=== PATIENT | female | born 1985 | race Caucasian/White ===

== ENCOUNTER → 2020-09-02 07:46 | Outpatient (BNVA) | payer OTHER, SELFPAY | PROVIDERS: PCP Internal Medicine; Referring Provider Internal Medicine; Visit Provider Dietitian, Registered | DX: Z76.89 Persons encountering health services in other specified circumstances (principal) ==

== ENCOUNTER → 2020-09-14 10:49 | Outpatient (BNVA) | payer OTHER, SELFPAY | PROVIDERS: PCP Internal Medicine Medical Oncology; Referring Provider Internal Medicine Medical Oncology; Visit Provider Surgery | DX: E66.9 Obesity, unspecified (principal); Z68.39 Body mass index [BMI] 39.0-39.9, adult | CPT/HCPCS: 99212 ==

== ENCOUNTER → 2020-09-21 10:28 | Outpatient (BNVA) | payer OTHER, SELFPAY | PROVIDERS: PCP Internal Medicine Medical Oncology; Visit Provider Physician Assistant | DX: E66.9 Obesity, unspecified (principal); Z68.39 Body mass index [BMI] 39.0-39.9, adult | CPT/HCPCS: 99212 ==

== ENCOUNTER 2020-10-28 13:35 | Outpatient (REF) | payer OTHER, SELFPAY ==
[2020-10-28 14:52] LABS: Basophils Percent Auto 0.4 % (0-2); Eosinophils Percent Auto 0.3 % (0-4); Imm Gran Abs Auto 0.02 X10*3/uL (0.00-0.03); Imm Gran Pct Auto 0.3 % (0.0-0.4); Lymphocytes Absolute Auto 2.2 X10*3/uL (1.2-4.9); Lymphocytes Percent Auto 27.3 % (20-40); Mean Corpuscular HGB Conc 33.3 g/dl (31.0-35.0); Mean Corpuscular Hemoglobin 29.5 pg (27.0-33.0); Mean Corpuscular Volume 88.6 fL (80-98); Mean Platelet Volume 10.6 fL (9.4-12.3); Monocytes Absolute Auto 0.5 X10*3/uL (0.1-1.2); Monocytes Percent Auto 6.6 % (2-11); Neutrophils Absolute Auto 5.2 X10*3/uL (2.0-8.3); Neutrophils Percent Auto 65.1 % (45-73); Platelet Count 261 X10*3/uL (160-400); Red Cell Distribution Width 13.2 % (11.0-16.0); White Blood Count 7.9 X10*3/uL (4.8-10.8)
[2020-10-28 14:55] LABS: MANUAL DIFF FLAG NO
[2020-10-28 15:18] LABS: Albumin Level 3.8 g/dL (3.5-5.0); Anion Gap 10 (12-20); Blood Urea Nitrogen 15 mg/dL (9-16); Calcium 8.7 mg/dL (8.4-10.2); Carbon Dioxide 25 mmol/L (22-29); Chloride 108 mmol/L (96-108); Estimated Glomerular Filt Rate > 60; Glucose Random 84 mg/dL (60-115); Sodium 139 mmol/L (135-145)
[2020-10-28 15:25] LABS: Glucose Urine UA NEG (NEG); Leukocyte Esterase Urine 2+ (NEG); Nitrite Urine NEG (NEG); PH 5.5 (5.0-8.0); Specific Gravity - Urine >= 1.030 (1.005-1.025); Urine Blood 2+ (NEG); Urine Ketones 5 MG/DL (NEG); Urine Protein NEG (NEG-TRACE)
[2020-10-28 15:39] LABS: Appearance Urine HAZY; Color Urine YELLOW
[2020-10-28 17:01] LABS: Bacteria Urine 1+ /LPF; Squamous Epithelial Cell Urine 1+ /LPF
== END 2020-10-28 13:36 | disposition home or self-care (01) ==
LOC: HO.LAB 13:35
PROVIDERS: PCP Internal Medicine; Visit Provider Surgery
DX: Z01.818 Encounter for other preprocedural examination (principal); E66.9 Obesity, unspecified; Z68.37 Body mass index [BMI] 37.0-37.9, adult
CPT/HCPCS: 36415; 80048; 81001; 82040; 85025; 87086; 99212

== ENCOUNTER → 2020-10-29 10:52 | Outpatient (REF) | payer OTHER, SELFPAY ==
--- NOTE | 2020-10-29 13:26 | ECG_ITS ---
Test Reason : CP Blood Pressure : / mmHG Vent. Rate : 069 BPM Atrial Rate : 069 BPM P-R Int : 134 ms QRS Dur : 086 ms QT Int : 422 ms P-R-T Axes : 057 060 036 degrees QTc Int : 452 ms Normal sinus rhythm Normal ECG When compared with ECG of 15-JUL-2020 10:11, No significant change was found Referred By: Cesilia Forte Electronically Signed By:Tyler Gary
== END ==
LOC: HO.CARD 10:52
PROVIDERS: PCP Internal Medicine; Visit Provider Physician Assistant
DX: Z01.818 Encounter for other preprocedural examination (principal); R07.9 Chest pain, unspecified; R06.02 Shortness of breath
CPT/HCPCS: 93005

== ENCOUNTER 2020-11-10 06:26 | Inpatient (IN) | payer OTHER, SELFPAY ==
[2020-10-27 12:20] VITALS: BMI 39.1
--- NOTE | 2020-11-08 14:51 | MHC.SHP ---
Pre-Procedural Eval Section B Chief Complaint: Severe Morbid Obesity Allergies: Allergies Allergy/AdvReac Type Severity Reaction Status Date / Time banana Allergy Unknown Hives Uncoded 10/28/20 14:19 coffee deal Allergy Unknown Hives Uncoded 10/28/20 14:19 dust/dustmites Allergy Unknown Itching Uncoded 10/28/20 14:19 grass Allergy Unknown throat Uncoded 10/28/20 14:19 closure from cut grass shellfish Allergy Unknown throat Uncoded 10/28/20 14:19 closure from steamed shellfish Plan I have reviewed the history and physical and performed a pertinent physical examination on my patient. No changes have occurred unless specified.
--- NOTE | 2020-11-09 10:06 | HO.ANESPROP2 ---
Documented by User: Martha Madera 11/09/20 10:14 HPI - Anesthesia Eval Consult details Narrative: 35yo F for Gastrectomy Sleeve PMFSH Past Medical History Medical History Dysphagia Eczema Encephalomalacia on imaging study Insomnia OAB (overactive bladder) Obesity (BMI 30-39.9) Family History Family History Father HTN (hypertension) Mother HTN (hypertension) Brother No problems noted. Sister No problems noted. Sister No problems noted. Sister No problems noted. Daughter No problems noted. Daughter Brain tumor Seizure disorder Surgical History Surgical History History of bladder surgery History of esophagogastroduodenoscopy (EGD) History of tooth extraction Social History Social History Are you a primary healthcare technician to a significant other at home: No Do you presently have visiting nurse or other home services: No Alcohol intake: never Smoking Status: Never smoker Use of substances other than those prescribed or required for medical reasons: No Have you been hit, kicked, punched, or otherwise hurt by someone within the past year? If so, by whom?: No Advance Directives: No Advance Directives Information Provided: No Advance Directives on File: No Recently lost weight without trying: No Meds Allergies Allergy/AdvReac Type Severity Reaction Status Date / Time grass Allergy Severe throat Uncoded 11/10/20 06:43 closure from cut grass shellfish Allergy Severe throat Uncoded 11/10/20 06:42 closure from steamed shellfish banana Allergy Mild Hives Uncoded 11/10/20 06:43 coffee deal Allergy Mild Hives Uncoded 11/10/20 06:43 dust/dustmites Allergy Mild Itching Uncoded 11/10/20 06:44 Home Medications Medication Instructions Recorded Confirmed Type albuterol sulfate 90 mcg/actuation 1 puff INHALATION Q4-6H PRN 09/14/20 10/28/20 History aerosol inhaler clobetasol 0.05 % topical cream 1 appl TOPICAL BID PRN 09/14/20 10/28/20 History cyclobenzaprine 10 mg tablet 10 mg PO BEDTIME 09/14/20 10/28/20 History docusate sodium 100 mg capsule 100 mg PO BID 09/14/20 10/28/20 History fesoterodine 8 mg tablet,extended 8 mg PO DAILY 09/14/20 10/28/20 History release 24 hr fexofenadine 180 mg tablet 180 mg PO DAILY 09/14/20 10/28/20 History zolpidem 5 mg tablet 5 mg PO BEDTIME PRN 09/14/20 10/28/20 History etonogestrel-ethinyl estradiol 1 vag ring VAGINAL Q4W 10/27/20 10/28/20 History [NuvaRing] montelukast 1 tab PO BEDTIME 10/27/20 10/28/20 History multivitamin [One A Day] 1 tab PO DAILY 10/27/20 10/28/20 History omeprazole 1 cap PO DAILY 10/27/20 10/28/20 History potassium mg PO DAILY 10/27/20 10/28/20 History pxsffzt-wtiasrrsx-mgou 333 mg-133 tab PO DAILY tab 10/28/20 10/28/20 History mg-5 mg tablet Exam Exam Date and Time: November 09, 2020 1006 Height,Weight and Vital Signs: Height 5 ft 5.5 in Weight 108.227 kg Pertinent Lab Results Pertinent Lab Results: Laboratory Tests 10/28/20 14:40 Blood Type A Negative Antibody Screen NEGATIVE Laboratory Tests 10/28/20 10/28/20 14:40 14:40 WBC 7.9 Hgb 13.0 Hct 39.0 Plt Count 261 Sodium 139 Potassium 4.0 Chloride 108 Carbon Dioxide 25 BUN 15 Creatinine 0.72 Narrative Narrative: EKG 10/2020: NSR@69 Assessment and Plan Assessment Anesthesia Assessment: Chart Reviewed Documented by User: Jono Ochoa MD 11/10/20 07:35 [facility] Past Medical History Medical History Dysphagia Eczema Encephalomalacia on imaging study Insomnia OAB (overactive bladder) Obesity (BMI 30-39.9) Family History Family History Father HTN (hypertension) Mother HTN (hypertension) Brother No problems noted. Sister No problems noted. Sister No problems noted. Sister No problems noted. Daughter No problems noted. Daughter Brain tumor Seizure disorder Surgical History Surgical History History of bladder surgery History of esophagogastroduodenoscopy (EGD) History of tooth extraction Social History Social History Are you a primary healthcare technician to a significant other at home: No Do you presently have visiting nurse or other home services: No Alcohol intake: never Smoking Status: Never smoker Use of substances other than those prescribed or required for medical reasons: No Have you been hit, kicked, punched, or otherwise hurt by someone within the past year? If so, by whom?: No Advance Directives: No Advance Directives Information Provided: No Advance Directives on File: No Recently lost weight without trying: No Meds Allergies Allergy/AdvReac Type Severity Reaction Status Date / Time grass Allergy Severe throat Uncoded 11/10/20 06:43 closure from cut grass shellfish Allergy Severe throat Uncoded 11/10/20 06:42 closure from steamed shellfish banana Allergy Mild Hives Uncoded 11/10/20 06:43 coffee deal Allergy Mild Hives Uncoded 11/10/20 06:43 dust/dustmites Allergy Mild Itching Uncoded 11/10/20 06:44 Home Medications Medication Instructions Recorded Confirmed Type albuterol sulfate 90 mcg/actuation 1 puff INHALATION Q4-6H PRN 09/14/20 10/28/20 History aerosol inhaler clobetasol 0.05 % topical cream 1 appl TOPICAL BID PRN 09/14/20 10/28/20 History cyclobenzaprine 10 mg tablet 10 mg PO BEDTIME 09/14/20 10/28/20 History docusate sodium 100 mg capsule 100 mg PO BID 09/14/20 10/28/20 History fesoterodine 8 mg tablet,extended 8 mg PO DAILY 09/14/20 10/28/20 History release 24 hr fexofenadine 180 mg tablet 180 mg PO DAILY 09/14/20 10/28/20 History zolpidem 5 mg tablet 5 mg PO BEDTIME PRN 09/14/20 10/28/20 History etonogestrel-ethinyl estradiol 1 vag ring VAGINAL Q4W 10/27/20 10/28/20 History [NuvaRing] montelukast 1 tab PO BEDTIME 10/27/20 10/28/20 History multivitamin [One A Day] 1 tab PO DAILY 10/27/20 10/28/20 History omeprazole 1 cap PO DAILY 10/27/20 10/28/20 History potassium mg PO DAILY 10/27/20 10/28/20 History klfzalg-npvyulklf-whji 333 mg-133 tab PO DAILY tab 10/28/20 10/28/20 History mg-5 mg tablet Exam Airway Mallampati Class: II TM Dist: >3cm Neck ROM: Full Loose/Missing/Broken Teeth: No Heart: RRR Lungs: NL Other: AO Assessment and Plan Assessment Anesthesia Assessment: Anesthesia Plan Discussed and Chart Reviewed Final Anesthetic Review NPO: Yes ASA Class: II Final Preanesthetic Review: No Changes in Pt Med Stat, Meds/Allgs Chart Reviewed, Consent Obtained/Reviewed and Anes Risks/Benef Reviewed Patient Risk: Low Procedure Risk: Intermediate Anesthetic Plan Anesthetic Plan: GA Disposition: Standard PACU
[2020-11-10] VITALS (18 sets, daily range): BP systolic 104–138; BP diastolic 58–96; PULSE 65–99; RESP 12–20; TEMP 35.5–37.3; O2SAT 94–100
[2020-11-10 06:37] LABS: UPreg QC Valid YES; Urine Pregnancy NEGATIVE (NEGATIVE)
[2020-11-10 06:52] LABS: COVID-19 Test Negative (Negative)
[2020-11-10] MEDS: Lactated Ringers 1,000 ML 100 ML IVCONT (07:21)
[2020-11-10] MEDS: HYDROmorphone HCl 0.5 MG/0.5 ML SYRINGE 0.25 MG IVPUSH ×4 (09:34→19:56)
--- NOTE | 2020-11-10 09:44 | W.PM.OPN ---
Operative Note Operative Note Date of Service: 11/10/20 Narrative: Patient was brought into the operating room and placed on the operating room table in the supine position. General anesthesia was induced. Normal DVT prophylaxis was instituted and the patient received 2 grams of cefotetan preoperatively. The abdomen was then prepped and draped in the normal sterile fashion. A safety time-out was performed. A mixture of 1% lidocaine with epinephrine and ??% Marcaine plain was used to anesthetize the planned incision site in the left upper quadrant. A #11 scalpel was used to make a 5 mm left upper quadrant transverse incision through which a veress needle was placed. Three pops were heard going through the fascia. A saline drop test was used to confirm that the veress needle was intraabdominal. An optiview technique was then used to place a 5mm port in the left upper quadrant. A 5 mm 30 degree laproscope was then placed through this port and the abdominal cavity was surveyed and was normal. The patient was placed in reverse Trendelenburg positioning. A nichole liver retractor was then placed in the subxyphoid position and it was used to hold up the left lobe of the liver to the abdominal wall. This was secured to the bed using the liver retractor [place]. A ADONIS block was then performed for pain control on the right side of the abdomen. A 5 mm port was placed in the right upper quadrant near the falciform ligament. A 12 mm port was then placed in the mid epigastrium. One additional 5 mm port was placed in the left upper quadrant just to the left of the placement of the first port. I then performed a ADONIS block on the left side of the abdomen. I then removed the epigastric fat pad; there was a small anterior hiatal hernia noted. I reapproximated the left and right crura with a total of 2 stitches of 2-0 ethibond and a laparoscopic knot pusher. There was no residual hiatal hernia. I then opened up the angle of His. We then gained entry into the lesser sac about 4-5 cm from the pylorus. I had anesthesia place a 34 Ecu[place]orean orogastric tube into the distal antrum to use as a sizing tool for gastric pouch size. I divided the short gastric vessels up to the angle of His. We then started the creation of the gastric pouch by firing a 60 mm purple load endostapler up the stomach about 4-5 cm from the pylorus. We completed the creation of the gastric pouch using a total of 4 firings of a 60 mm purple load stapler. We had anesthesia remove the orogastric tube, then we clamped across the distal antrum using a fired 60 mm endostapler. We flattened the patient and then instilled normal saline surrounding the newly created staple line. I then performed an on-table endoscopy. I passed the gastroscopy into the posterior oropharynx and down the esophagus evaluating the esophageal mucosa which was normal. There was no evidence of hiatal hernia. I passed the gastroscope into the gastric pouch and insufflated the gastric pouch. There was healthy pink mucosa and no evidence of active bleeding. There was no evidence of leak on laparoscopy. I desufflated the gastric pouch and removed the endoscope. I removed the endostapler from the abdomen and suctioned the fluid from the left upper quadrant. I then removed the partial gastrectomy specimen through the epigastric 12 mm port site. I reapproximated the 12 mm port using a 0 maxon suture with a laparoscopic suture passer. I instilled local anesthetic into the fascial closure site and tied the suture down at a pressure of 8-10 mm of Hg. There was no residual fascial defect. We removed the liver retractor and the left upper quadrant 5 mm ports under direct visualization. There was no evidence of any active bleeding. I desufflated the abdomen through the last remaining port and removed the laparoscope and 5 mm port. We reapproximated all incisions with a 4-0 monocryl subcuticular stitch. We cleaned and dried the abdominal skin and applied dermabond skin glue. All count were correct at the end of the case. The patient was awake and in stable condition prior to extubation and transfer to the recovery room.
--- NOTE | 2020-11-10 09:45 | P.BOP_ITS ---
Brief Operative Note Date of Service: 11/10/20 Pre-op diagnosis: Obesity, BMI 37.8 Post-op diagnosis: other (Same and hiatal hernia) Procedure: Laparoscopic sleeve gastrectomy, hiatal hernia repair, Suraj block, and intraoperative endoscopy Implants: Covidien sally Surgeon: Cesilia Forte MD Anesthesia: [employer] Assembler: Bianca Wu Estimated blood loss (mL): 10 Pathology: other (Partial gastrectomy) Condition: stable Disposition: PACU
[2020-11-10] MEDS: Metoclopramide HCl 10 MG/2 ML VIAL IVPUSH ×3 (09:49→20:03)
[2020-11-10] MEDS: Famotidine/PF 20 MG/2 ML VIAL IVPUSH ×2 (09:51→20:28)
[2020-11-10] MEDS: Scopolamine 1.5 MG PATCH.TD.3 EAR-BEHIND (10:06)
[2020-11-10] MEDS: ondansetron HCL 4 MG/2 ML VIAL IVPUSH (17:07)
[2020-11-10] MEDS: Lactated Ringers 1,000 ML 150 ML IVCONT (17:48)
[2020-11-10] MEDS: Montelukast Sodium 10 MG TABLET PO (20:28)
[2020-11-10] MEDS: cefoTEtan disodium 2 GM in 0.9 % Sodium Chloride 50 ML IV (20:28)
[2020-11-10] MEDS: Zolpidem Tartrate 5 MG TABLET PO (20:28)
[2020-11-10] MEDS: 0.9 % Sodium Chloride Flush 3 ML SYRINGE IVFLUSH (20:29)
[2020-11-11] VITALS: BP 142/75; PULSE 79; RESP 16; TEMP 36.8; O2SAT 96
[2020-11-11] MEDS: Lactated Ringers 1,000 ML 150 ML IVCONT ×2 (00:29→06:24)
[2020-11-11] MEDS: ondansetron HCL 4 MG/2 ML VIAL IVPUSH ×2 (02:34→08:59)
[2020-11-11 03:54] VITALS: BP 149/90; PULSE 86; RESP 87; TEMP 36.8; O2SAT 98
[2020-11-11 04:31] LABS: Basophils Percent Auto 0.1 % (0-2); Hematocrit 34.8 % (37-47); Hemoglobin 11.6 g/dl (12.0-16.0); Imm Gran Abs Auto 0.03 X10*3/uL (0.00-0.03); Imm Gran Pct Auto 0.3 % (0.0-0.4); Lymphocytes Absolute Auto 1.8 X10*3/uL (1.2-4.9); Lymphocytes Percent Auto 15.5 % (20-40); Mean Corpuscular HGB Conc 33.3 g/dl (31.0-35.0); Mean Corpuscular Hemoglobin 30.1 pg (27.0-33.0); Mean Corpuscular Volume 90.4 fL (80-98); Mean Platelet Volume 10.7 fL (9.4-12.3); Monocytes Absolute Auto 0.8 X10*3/uL (0.1-1.2); Neutrophils Absolute Auto 8.7 X10*3/uL (2.0-8.3); Neutrophils Percent Auto 77.1 % (45-73); Platelet Count 229 X10*3/uL (160-400); Red Blood Count 3.85 X10*6/uL (4.20-5.50); Red Cell Distribution Width 13.2 % (11.0-16.0); White Blood Count 11.3 X10*3/uL (4.8-10.8)
[2020-11-11 04:32] LABS: MANUAL DIFF FLAG NO
[2020-11-11 05:01] LABS: Anion Gap 12 (12-20); Blood Urea Nitrogen 8 mg/dL (9-16); Calcium 8.3 mg/dL (8.4-10.2); Carbon Dioxide 25 mmol/L (22-29); Chloride 104 mmol/L (96-108); Creatinine Clr Calc Pharmacy 136.5; Estimated Glomerular Filt Rate > 60; Glucose Random 99 mg/dL (60-115); Potassium 4.3 mmol/l (3.3-5.1); Sodium 137 mmol/L (135-145)
[2020-11-11 08:00] VITALS: BP 152/96; PULSE 114; RESP 18; TEMP 36.4; O2SAT 98
--- NOTE | 2020-11-11 08:51 | PM.PNGS ---
Subjective Subjective Date of Service: 11/11/20 Interval history: Some incisional pain, no nausea. Been ambulating and using incentive spirometer. Had 2 oz of shake so far, and drank phase 2 yesterday. Physical Exam Vital Signs: Vital Signs: Last Vital Signs Temp 97.5 F 11/11/20 08:00 Pulse 114 H 11/11/20 08:00 Resp 18 11/11/20 08:00 BP 152/96 H 11/11/20 08:00 Pulse Ox 98 11/11/20 08:00 Body Mass Index 39.1 Const: General: cooperative, comfortable and no acute distress Orientation/consciousness: oriented to person, oriented to place and oriented to time GI: Inspection: Yes normal to inspection, No distended, Yes incision (surgical glue intact, no erythema/drainage/warmth/tenderness/induration) and Yes obesity Palpation (GI): Soft to palpation, nontender and no guarding Skin: General skin exam: scars (well-healed) Neuro: General: oriented to person, oriented to place and oriented to time Extrem: General: No calf tenderness Right lower extremity: no edema Left lower extremity: no edema Psych: Affect: normal affect Attitude: cooperative Progress Note: A&P Assessment and plan (1) S/P laparoscopic sleeve gastrectomy: Status: Acute (2) History of repair of hiatal hernia: Status: Acute Assessment and Plan: POD #1: Patient doing well and will be discharged home today. All instructions given in writing. Follow up as scheduled in 2 weeks. Fall Risk Details Current Medications: Current Medications Generic Name Dose Route Start Last Admin Trade Name Freq PRN Reason Stop Dose Admin Albuterol Sulfate 1 puff 11/10/20 13:04 Albuterol Sulfate 90 Mcg 8 Gm Inhaler INHALE Q4H PRN Wheezing Famotidine 20 mg 11/10/20 09:45 11/10/20 20:28 Famotidine/Pf 20 Mg/2 Ml Vial IVPUSH 20 mg BID PALLAVI Administration Hydromorphone HCl 0.25 mg 11/10/20 07:35 11/10/20 10:25 Hydromorphone Hcl 0.5 Mg/0.5 Ml Syringe IVPUSH 0.25 mg Q5M PRN Administration Pain, Severe (Pain Scale 7-10) Hydromorphone HCl 0.25 mg 11/10/20 09:40 11/10/20 19:56 Hydromorphone Hcl 0.5 Mg/0.5 Ml Syringe IVPUSH 0.25 mg Q4H PRN Administration Pain, Severe (Pain Scale 7-10) Lactated Ringer's 1,000 mls @ 150 mls/hr 11/10/20 09:45 11/11/20 06:24 Lr IVCONT 150 mls/hr .Q6H40M PALLAVI Administration Acetaminophen 1,000 mg in 100 mls @ 16.7 mls/hr 11/10/20 09:45 11/11/20 08:20 Ofirmev IV 16.7 mls/hr .Q6H PALLAVI Administration Metoclopramide HCl 10 mg 11/10/20 09:40 11/10/20 20:03 Metoclopramide Hcl 10 Mg/2 Ml Vial IVPUSH 10 mg Q6H PRN Administration Nausea Montelukast Sodium 10 mg 11/10/20 21:00 11/10/20 20:28 Montelukast Sodium 10 Mg Tablet PO 10 mg BEDTIME PALLAVI Administration Ondansetron HCl 4 mg 11/10/20 09:45 11/11/20 02:34 Ondansetron Hcl 4 Mg/2 Ml Vial IVPUSH 4 mg Q8H PALLAVI Administration Sodium Chloride 3 ml 11/10/20 16:00 11/11/20 08:20 0.9 % Sodium Chloride Flush 3 Ml Syringe IVFLUSH Not Given QSHIFT PALLAVI Zolpidem Tartrate 5 mg 11/10/20 13:04 11/10/20 20:28 Zolpidem Tartrate 5 Mg Tablet PO 5 mg BEDTIME PRN Administration Sleep Time Spent With Patient Time: Total time spent is greater than 50% in coordination of care (as documented) at patient's floor/unit and/or counseling patient: Time with patient: 15 - 24 minutes
--- NOTE | 2020-11-11 08:58 | PM.DS ---
DS: Providers Provider Date of admission: 11/10/20 06:26 Primary care physician: Seamus Stroud MD DS: Diagnosis Discharge Diagnosis (1) S/P laparoscopic sleeve gastrectomy: Status: Acute (2) History of repair of hiatal hernia: Status: Acute DS: Medications Discharge Medications Home Medications: Home Medications Medication Instructions Recorded Confirmed albuterol sulfate 90 mcg/actuation 1 puff INHALATION Q4-6H PRN 09/14/20 10/28/20 aerosol inhaler clobetasol 0.05 % topical cream 1 appl TOPICAL BID PRN 09/14/20 10/28/20 cyclobenzaprine 10 mg tablet 10 mg PO BEDTIME 09/14/20 10/28/20 docusate sodium 100 mg capsule 100 mg PO BID 09/14/20 10/28/20 fesoterodine 8 mg tablet,extended 8 mg PO DAILY 09/14/20 10/28/20 release 24 hr fexofenadine 180 mg tablet 180 mg PO DAILY 09/14/20 10/28/20 zolpidem 5 mg tablet 5 mg PO BEDTIME PRN 09/14/20 10/28/20 etonogestrel-ethinyl estradiol 1 vag ring VAGINAL Q4W 10/27/20 10/28/20 [NuvaRing] montelukast 1 tab PO BEDTIME 10/27/20 10/28/20 multivitamin [One A Day] 1 tab PO DAILY 10/27/20 10/28/20 omeprazole 1 cap PO DAILY 10/27/20 10/28/20 potassium mg PO DAILY 10/27/20 10/28/20 krfccow-dunkxuxhx-hlop 333 mg-133 tab PO DAILY tab 10/28/20 10/28/20 mg-5 mg tablet Previous Rx's Medication Instructions Recorded acetaminophen 500 mg tablet 1,000 mg PO Q6H PRN #30 tab 10/28/20 docusate sodium 100 mg capsule 100 mg PO BID #30 cap 10/28/20 famotidine 20 mg tablet 20 mg PO DAILY #30 tab 10/28/20 ondansetron HCl 4 mg tablet 4 mg PO Q6H PRN #30 tab 10/28/20 simethicone 80 mg chewable tablet 80 mg PO TID-QID PRN #30 tab 10/28/20 sulfamethoxazole 800 1 tab PO BID 5 Days #10 tab 10/29/20 mg-trimethoprim 160 mg tablet DS: Summary Time Spent with Patient Time attestation: Total time spent providing and/or coordinating discharge services: Physical Exam Vital Signs: Vital Signs: Last Vital Signs Temp 97.5 F 11/11/20 08:00 Pulse 114 H 11/11/20 08:00 Resp 18 11/11/20 08:00 BP 152/96 H 11/11/20 08:00 Pulse Ox 98 11/11/20 08:00 Body Mass Index 39.1 DS: Data Data Completed and Pending Pending studies at discharge: Pending at discharge 11/10/20 08:33 Surgical [PTH] Routine Labs on day of discharge: 10/28/20 14:40 Type and Screen Routine 11/10/20 06:12 Acetaminophen [Ofirmev] 1,000 mg in 100 ml IV PREOP cefoTEtan disod/Dextrose,Iso [Cefotan] 2 gm in 50 ml IV PREOP 11/10/20 06:15 COVID-19 ID NOW ([place]) Stat Ur Preg Test Stat Lactated Ringers [Lr] 1,000 ml IVCONT 100 mls/hr 11/10/20 07:07 Bupivacaine MPF 0.25 % [Sensorcaine-MPF 0.25% 10 ML] 10 ml .ROUTE .STK-MED ONE Lidocaine HCl 1 % MPF [Xylocaine 1 % MPF] 5 ml .ROUTE .STK-MED ONE 11/10/20 07:15 Acetaminophen [Ofirmev] 1,000 mg in 100 ml IV As directed cefoTEtan disodium [Cefotan] 2 gm .ROUTE .STK-MED ONE 11/10/20 07:18 Lidocaine HCl 2 % MPF [Xylocaine 2 % MPF] 5 ml .ROUTE .STK-MED ONE Midazolam HCl/PF [Versed] 2 mg .ROUTE .STK-MED ONE Rocuronium [place] [Zemuron] 100 mg IV .STK-MED ONE propofoL [Diprivan] 200 mg IVPUSH .STK-MED ONE 11/10/20 07:19 Ketamine HCl/NS 50 mg IVPUSH .STK-MED ONE fentaNYL citrate/PF [Sublimaze] 50 mcg .ROUTE .STK-MED ONE 11/10/20 07:35 oxyCODONE HCl Immed Release [Roxicodone] 5 mg PO ONCE PRN 11/10/20 07:37 Promethazine HCL [Phenergan] 12.5 mg 0.9 % Sodium Chloride [Ns] 50 ml IV ONCE 11/10/20 07:58 dexAMETHasone sod phosphate [Decadron] 4 mg .ROUTE .STK-MED ONE ondansetron HCL [Zofran] 4 mg .ROUTE .STK-MED ONE 11/10/20 08:03 HYDROmorphone HCl [Dilaudid] 2 mg .ROUTE .STK-MED ONE 11/10/20 08:18 Phenylephrine HCL 1,000 mcg IVPUSH .STK-MED ONE ePHEDrine sulfate 50 mg .ROUTE .STK-MED ONE 11/10/20 09:08 Sugammadex Sodium [Bridion] 200 mg IVPUSH .STK-MED ONE 11/10/20 09:25 Promethazine HCL [Phenergan] 25 mg IV .STK-MED ONE 11/10/20 09:32 HYDROmorphone HCl [Dilaudid] 0.5 mg .ROUTE .STK-MED ONE 11/10/20 09:34 Transfer Order Routine 11/10/20 10:02 Scopolamine [Transderm-Scop] 1.5 mg EAR-BEHIND ONCE ONE 11/10/20 10:05 Scopolamine [Transderm-Scop] 1.5 mg .ROUTE .STK-MED ONE 11/10/20 10:08 HYDROmorphone HCl [Dilaudid] 0.5 mg .ROUTE .STK-MED ONE 11/10/20 20:00 cefoTEtan disodium [Cefotan] 2 gm 0.9 % Sodium Chloride [Ns] 50 ml IV POSTOP 11/10/20 20:23 cefoTEtan disodium [Cefotan] 2 gm .ROUTE .STK-MED ONE 11/11/20 04:07 Basic Metabolic Panel DAILY@0500 Complete Blood Count Auto Diff DAILY@0500 Laboratory Last Values WBC 11.3 X10*3/uL (4.8-10.8) H 11/11/20 04:07 RBC 3.85 X10*6/uL (4.20-5.50) L 11/11/20 04:07 Hgb 11.6 g/dl (12.0-16.0) L 11/11/20 04:07 Hct 34.8 % (37-47) L 11/11/20 04:07 MCV 90.4 fL (80-98) 11/11/20 04:07 MCH 30.1 pg (27.0-33.0) 11/11/20 04:07 MCHC 33.3 g/dl (31.0-35.0) 11/11/20 04:07 RDW 13.2 % (11.0-16.0) 11/11/20 04:07 Plt Count 229 X10*3/uL (160-400) 11/11/20 04:07 MPV 10.7 fL (9.4-12.3) 11/11/20 04:07 Immature Gran % (Auto) 0.3 % (0.0-0.4) 11/11/20 04:07 Neut % (Auto) 77.1 % (45-73) H 11/11/20 04:07 Lymph % (Auto) 15.5 % (20-40) L 11/11/20 04:07 Stark % (Auto) 7.0 % (2-11) 11/11/20 04:07 Eos % (Auto) 0.0 % (0-4) 11/11/20 04:07 Baso % (Auto) 0.1 % (0-2) 11/11/20 04:07 Lymph # (Auto) 1.8 X10*3/uL (1.2-4.9) 11/11/20 04:07 Stark # (Auto) 0.8 X10*3/uL (0.1-1.2) 11/11/20 04:07 Eos # (Auto) 0.0 X10*3/uL (0.0-0.4) 11/11/20 04:07 Baso # (Auto) 0.0 X10*3/uL (0.0-0.2) 11/11/20 04:07 Abs Immat Gran (auto) 0.03 X10*3/uL (0.00-0.03) 11/11/20 04:07 Absolute Neuts (auto) 8.7 X10*3/uL (2.0-8.3) H 11/11/20 04:07 Absolute Nucleated RBC 0.000 X10*3/uL (0.0-0.012) 11/11/20 04:07 Nucleated RBC % (auto) 0.0 /100WBC (0.0-0.2) 11/11/20 04:07 Sodium 137 mmol/L (135-145) 11/11/20 04:07 Potassium 4.3 mmol/l (3.3-5.1) 11/11/20 04:07 Chloride 104 mmol/L (96-108) 11/11/20 04:07 Carbon Dioxide 25 mmol/L (22-29) 11/11/20 04:07 Anion Gap 12 (-) 11/11/20 04:07 BUN 8 mg/dL (9-16) L 11/11/20 04:07 Creatinine 0.69 mg/dL (0.5-1.4) 11/11/20 04:07 Estim Creat Clear Calc 136.5 11/11/20 04:07 Estimated GFR > 60 11/11/20 04:07 Random Glucose 99 mg/dL (60-115) 11/11/20 04:07 Calcium 8.3 mg/dL (8.4-10.2) L 11/11/20 04:07 Urine Test NEGATIVE (NEGATIVE) 11/10/20 06:15 COVID-19 (RUBÉN) Negative (Negative) 11/10/20 06:15 COVID-19 Clin Com See Note 11/10/20 06:15 Blood Type A Negative 10/28/20 14:40 Antibody Screen NEGATIVE 10/28/20 14:40 Discharge Plan Discharge Patient Disposition: Home, Self-Care Referrals: Seamus Stroud MD [Primary Care Provider] - Discharge Medications: Continued sulfamethoxazole-trimethoprim [Bactrim DS] 800-160 mg tablet 1 tab PO BID 5 Days Qty: 10 RF: 0 multivitamin [One A Day] Tablet 1 tab PO DAILY RF: 0 omeprazole 20 mg capsule,delayed release(DR/EC) 1 cap PO DAILY RF: 0 montelukast 10 mg tablet 1 tab PO BEDTIME RF: 0 potassium 20 mg Tablet,Chewable PO DAILY RF: 0 vyiebhf-qtaxvgigg-hyaj 333-133-5 mg tablet PO DAILY RF: 0 acetaminophen [Tylenol Extra Strength] 500 mg tablet 1,000 mg PO Q6H PRN (Reason: pain) Qty: 30 RF: 1 famotidine [Pepcid AC] 20 mg tablet 20 mg PO DAILY Qty: 30 RF: 1 simethicone [Gas Relief (simethicone)] 80 mg tablet,chewable 80 mg PO TID-QID PRN (Reason: abdominal distention) Qty: 30 RF: 1 ondansetron HCl [Zofran] 4 mg tablet 4 mg PO Q6H PRN (Reason: nausea and vomiting) Qty: 30 RF: 1 docusate sodium [Colace] 100 mg capsule 100 mg PO BID Qty: 30 RF: 1 fexofenadine 180 mg tablet 180 mg PO DAILY RF: 0 Toviaz 8 mg tablet extended release 24 hr 8 mg PO DAILY RF: 0 albuterol sulfate 90 mcg/actuation HFA aerosol inhaler 1 puff inhalation Q4-6H PRN (Reason: Wheezing) RF: 0 zolpidem 5 mg tablet 5 mg PO BEDTIME PRN (Reason: Sleep) RF: 0 cyclobenzaprine 10 mg tablet 10 mg PO BEDTIME RF: 0 clobetasol 0.05 % cream 1 appl topical BID PRN (Reason: Skin Irritation) RF: 0 Held etonogestrel-ethinyl estradiol [NuvaRing] 0.12-0.015 mg/24 hr Ring 1 vag ring VAGINAL Q4W RF: 0 Hold Instructions: Resume on 12/08/20. Discontinued docusate sodium 100 mg capsule 100 mg PO BID RF: 0 Diet: other Activity on Discharge: No heavy lifting Activity Restrictions/Additional Instructions: Discharge Instructions 1. Please call your doctor or come back to the emergency room should any new symptoms arise. 2. You will receive a courtesy call from [facility] 24-48 hours after discharge. 3. Activity: abstain from alcohol, practice limited stair climbing, no bending, no driving, no exercise, no illicit substances, no lifting, no sex, no tub bath, no work. 4. Diet: continue stage 3 protein shakes until your [address] Forte. 5. Dressing Change/Wound Care: Your incision is covered by surgical glue. If the area is tender, you may apply an ice pack for short intervals (no more than 20 minutes on, followed by at least 20 minutes off). Do not apply heat. Do not use creams, lotions, or topical antibiotics unless instructed to do so by your surgeon. These can cause infection or allergic reaction. 6. Call your doctor if: - Your temperature exceeds 101.5 F - You experience excessive pain or swelling - You have an unexpected reaction to medication - You have excessive bleeding - You experience continued vomiting/nausea - Your incision begins to separate - Your incision shows signs of infection such as increased redness, swelling, excessive pain, heat, or drainage (light blood or clear fluid is normal) 7. General instructions: - No lifting greater than 5 lbs for the next 4 weeks. - No driving within 24 hours of taking narcotic pain medications. - If you do not move your bowels in the next 2 days, please take milk of magnesia over the counter. Please follow the post op diet and do not advance your diet until you are seen in the office in about 2 weeks. - Please walk around your home every hour or two to prevent blood clots from forming in your legs. You do not need to wake from sleeping to walk. - Please sleep in a bed or couch to prevent kinking at the hips and knees. - Please take your incentive spirometer (your lung emergency room physician assistant) home with you and use it for the next few days to prevent pneumonias. - You may shower, no hot tubs, baths or swimming pools. - Please call the office with any questions or concerns such as increasing abdominal pain, fever, chills, shortness of breath, chest pain, leg pain or swelling, or redness or drainage from your incisions. - Please stay on stage 3 diet which includes sugar free clear liquids such as ice pops and jello and broth and crystal light. Avoid all carbonation. Please drink 3 protein shakes with at least 25-30 grams of protein daily or 3 of the Celebrate 4:1 shakes which can be purchased in our office. The Celebrate shakes have all of the bariatric vitamins you need if you consume these shakes. If you are drinking other protein shakes, you will need to purchase the Celebrate multivitamins and calcium that we provide in the office (they will provide all the vitamins you need). Please make sure you are consuming at least 40-60 ounces of water in addition to your 3 protein shakes daily. 8. Do not hesitate to contact the office with any questions at . Discharge Summary Date of Service: 11/11/20 Admitting Diagnosis: obesity Discharge Diagnosis: same Procedure Performed: LSG, HH repair, freddy block, intraoperative endoscopy Discharge Medications: 1. Simethicone 80mg tablet chewable (Si tablet every 6 hours orally for 7 days, #28, 1 RF) q4h prn gas 2. Acetaminophen 500 mg tablet (Si tablets as needed every 6 hours orally for 30 days, #240, 0 RF) 3. Ondansetron 4 mg tablet disintegrating (Si tablet every 6 hours orally for 7 days, #28, 1 RF) 4. Colace 100 mg capsule (Si capsule twice a day for 30 days, #60, 2 RF) 5. Pepcid 20 mg chewable tablet (Si tablet twice a day for 30 days, #60, 3 RF) Discharge Instructions: The patient should continue on the stage III bariatric diet, which includes 3 protein shakes of at least 20-30g of protein on a daily basis. The patient was encouraged to avoid drinking liquids with her protein shakes. They should wait 30-45 minutes in between her meals and drinking water. She should drink at least 40-60 ounces of water on a daily basis. They should ambulate while at home to avoid any blood clots in her lower extremities. They should call with any questions or concerns such as increase in abdominal pain, persistent nausea, vomiting, redness and drainage from her incisions, fever, chills, shortness of breast, or chest pain beyond what is normal for her. The patient should avoid all heavy lifting greater than 5 pounds for the next 4 weeks. The patient is already scheduled to follow up with me in 2 weeks time, but should call the office with any questions prior to that follow up appointment. The patient should not advance their diet until they are seen in the office for the 2 week appointment. Hospital Course: The patient was admitted after undergoing SURGERY. They were started on stage II (1 oz of fluid every 15 minutes) on POD #0. The next morning they were evaluated and started on stage III diet (protein shakes). All labs were within normal limits. On post-operative day #1 she was feeling better, nausea and epigastric pain improved and they were tolerating stage III bariatric diet well. The patient was discharged home. Discharge Disposition: Home. Visit Report Forms: Patient Portal Discharge page Care Plan Goals: weight loss Health Concerns: obesity Plan of Treatment: s/p sleeve gastrectomy
--- NOTE | 2020-11-11 08:58 | HO.POSTANES ---
Post Anesthesia Evaluation Post Anesthesia Evaluation Vital Signs: Vital Signs Temp Pulse Resp BP Pulse Ox 11/11/20 08:00 97.5 F 114 H 18 152/96 H 98 11/11/20 03:54 98.3 F 86 87 H 149/90 H 98 11/11/20 00:00 98.2 F 79 16 142/75 H 96 Anesthesia: General Endotracheal-GETA Mental Status: Awake Pain Control: Satisfactory Nausea/Vomiting: None Hydration: Adequate Anesthesia-Related Issues: No Anes. Related Issues
[2020-11-11] MEDS: Famotidine/PF 20 MG/2 ML VIAL IVPUSH (08:59)
--- NOTE | 2020-11-11 10:00 | MHC.CM.PN ---
EMR BRIANWED, PT WILL DISCHARGE HOME SELF-CARE, DAUGHTER TO TRANSPORT, PT INDEPENDANT AT HOME, DENIES USING ANY DME AND HAS NO HOME SERVICES, PT DENIES ANY NEED FOR ASSISTANCE OR SERVICES. PT OFFERED HELP WITH HCP AND CM WILL COMPLETE WITH PT.
--- NOTE | 2020-11-11 10:13 | MHC.CM.PN ---
PT DISCHARGED HOME SELF-CARE, DAUGHTER FOR TRANSPORTATION, PT LEFT BEFORE COMPLETING HCP WITH CM.
== END 2020-11-11 10:15 | disposition home or self-care (01) | DRG 403 ==
LOC: HO.SSSA 11:53 → HO.S3 12:05
PROVIDERS: Nurse Practitioner; Physician Assistant; Admitting Provider Surgery; PCP Internal Medicine; Visit Provider Surgery
PROC: 0DB64Z3 Excision of Stomach, Percutaneous Endoscopic Approach, Vertical (ICD-10-PCS; CPT 43845; principal; 2020-11-10 07:30)
DX: E66.01 Morbid (severe) obesity due to excess calories (principal); K44.9 Diaphragmatic hernia without obstruction or gangrene; Z20.828 Contact with and (suspected) exposure to other viral communicable diseases; Z68.39 Body mass index [BMI] 39.0-39.9, adult; Z79.3 Long term (current) use of hormonal contraceptives; Z79.899 Other long term (current) drug therapy
CPT/HCPCS: 36415; 80048; 81025; 85025; 86850; 86900; 86901; 87635; 88307; 88342; C1776; J0131; J1100; J1170; J2250; J2370; J2405; J2765; J3010

== ENCOUNTER → 2020-11-23 15:34 | Outpatient (BNVA) | payer OTHER, SELFPAY | PROVIDERS: PCP Internal Medicine; Visit Provider Surgery | DX: E66.9 Obesity, unspecified (principal); K91.2 Postsurgical malabsorption, not elsewhere classified; Z98.890 Other specified postprocedural states; Z87.19 Personal history of other diseases of the digestive system; Z90.3 Acquired absence of stomach [part of]; Z98.84 Bariatric surgery status | CPT/HCPCS: 99212 ==

== ENCOUNTER → 2020-12-07 15:50 | Outpatient (BNVA) | payer OTHER, SELFPAY | PROVIDERS: PCP Internal Medicine; Visit Provider Physician Assistant | DX: E66.9 Obesity, unspecified (principal); K91.2 Postsurgical malabsorption, not elsewhere classified; Z98.84 Bariatric surgery status; Z90.3 Acquired absence of stomach [part of]; Z98.890 Other specified postprocedural states; Z87.19 Personal history of other diseases of the digestive system | CPT/HCPCS: 99212 ==

== ENCOUNTER → 2020-12-17 09:55 | Outpatient (BNVA) | payer OTHER, SELFPAY | PROVIDERS: PCP Internal Medicine; Visit Provider Physician Assistant | DX: E66.9 Obesity, unspecified (principal); Z68.33 Body mass index [BMI] 33.0-33.9, adult; K91.2 Postsurgical malabsorption, not elsewhere classified; K59.00 Constipation, unspecified; Z98.84 Bariatric surgery status | CPT/HCPCS: 99212 ==

== ENCOUNTER 2020-12-30 11:47 | Outpatient (REF) | payer OTHER, SELFPAY ==
--- NOTE | ~2020-12-30 | XR_ITS ---
EXAMINATION: XR ABDOMEN KUB CLINICAL INDICATION: K59.00 - Constipation, unspecified COMPARISON: None TECHNIQUE: AP x2 views of the abdomen. FINDINGS: There is scattered gas in the bowel of normal caliber. Some minor stool present right colon. There is no constipation. No excessive amount of stool. No bowel gas dilatation or abnormal collections of gas. Visualized lung bases are clear. There are fine chain sally overlying mid left epigastrium. There is a stimulator and lead overlying right mid sacral foramen. Bony structures are unremarkable. XR/XR KUB IMPRESSION: Unremarkable examination.
== END 2020-12-30 11:48 | disposition home or self-care (01) ==
LOC: HO.XRAY 11:47
PROVIDERS: PCP Internal Medicine; Visit Provider Physician Assistant
DX: K59.00 Constipation, unspecified (principal); E66.9 Obesity, unspecified; Z68.33 Body mass index [BMI] 33.0-33.9, adult
CPT/HCPCS: 74018; 99212

== ENCOUNTER → 2021-01-11 16:00 | Outpatient (BNVA) | payer OTHER, SELFPAY | PROVIDERS: PCP Internal Medicine; Visit Provider Dietitian, Registered ==

== ENCOUNTER → 2021-02-08 15:25 | Outpatient (BNVA) | payer OTHER, SELFPAY | PROVIDERS: PCP Internal Medicine; Visit Provider Surgery | DX: E66.9 Obesity, unspecified (principal); Z68.30 Body mass index [BMI] 30.0-30.9, adult | CPT/HCPCS: 99212 ==

== ENCOUNTER → 2021-03-08 15:46 | Outpatient (BNVA) | payer OTHER, SELFPAY | PROVIDERS: PCP Internal Medicine; Visit Provider Physician Assistant | DX: E66.3 Overweight (principal); Z68.29 Body mass index [BMI] 29.0-29.9, adult; K21.9 Gastro-esophageal reflux disease without esophagitis; Z90.3 Acquired absence of stomach [part of]; Z98.84 Bariatric surgery status; Z71.3 Dietary counseling and surveillance; Z79.899 Other long term (current) drug therapy | CPT/HCPCS: 99212 ==

== ENCOUNTER → 2021-04-05 10:20 | Outpatient (BNVA) | payer OTHER, SELFPAY | PROVIDERS: PCP Internal Medicine; Referring Provider Internal Medicine; Visit Provider Dietitian, Registered | DX: E66.3 Overweight (principal); Z68.28 Body mass index [BMI] 28.0-28.9, adult | CPT/HCPCS: 97803 ==

== ENCOUNTER → 2021-05-10 15:43 | Outpatient (BNVA) | payer OTHER, SELFPAY | PROVIDERS: PCP Internal Medicine; Referring Provider Internal Medicine; Visit Provider Surgery | DX: E66.3 Overweight (principal); Z68.28 Body mass index [BMI] 28.0-28.9, adult | CPT/HCPCS: 99212 ==

== ENCOUNTER 2021-05-12 09:18 | Outpatient (REF) | payer OTHER, SELFPAY ==
[2021-05-12 10:08] LABS: MANUAL DIFF FLAG NO
[2021-05-12 10:18] LABS: Basophils Percent Auto 0.5 % (0-2); Eosinophils Percent Auto 0.7 % (0-4); Hemoglobin 13.2 g/dl (12.0-16.0); Imm Gran Abs Auto 0.01 X10*3/uL (0.00-0.03); Imm Gran Pct Auto 0.2 % (0.0-0.4); Lymphocytes Absolute Auto 1.9 X10*3/uL (1.2-4.9); Lymphocytes Percent Auto 33.2 % (20-40); Mean Corpuscular Hemoglobin 29.8 pg (27.0-33.0); Mean Corpuscular Volume 90.3 fL (80-98); Mean Platelet Volume 10.7 fL (9.4-12.3); Monocytes Absolute Auto 0.3 X10*3/uL (0.1-1.2); Monocytes Percent Auto 5.9 % (2-11); Neutrophils Absolute Auto 3.4 X10*3/uL (2.0-8.3); Neutrophils Percent Auto 59.5 % (45-73); Platelet Count 248 X10*3/uL (160-400); Red Blood Count 4.43 X10*6/uL (4.20-5.50); White Blood Count 5.6 X10*3/uL (4.8-10.8)
[2021-05-12 10:38] LABS: Alanine Aminotransferase 18 U/L (0-31); Albumin Level 3.8 g/dL (3.5-5.0); Alkaline Phosphatase 97 U/L (39-117); Anion Gap 11 (12-20); Aspartate Amino Transferase 22 U/L (5-31); Bilirubin Total 0.5 mg/dL (0.0-1.0); Blood Urea Nitrogen 12 mg/dL (9-16); C Reactive Protein 0.85 mg/dL (< or = 0.50); Calcium 9.2 mg/dL (8.4-10.2); Carbon Dioxide 27 mmol/L (22-29); Chloride 107 mmol/L (96-108); Cholesterol 169 mg/dL; Estimated Glomerular Filt Rate > 60; Glucose Fasting 79 mg/dL (60-99); HDL Cholesterol 68 mg/dL; Iron 100 mcg/dL (30-160); LDL Cholesterol Calculated 84 mg/dl; Percent Iron Saturation 29 % (15-50); Potassium 4.6 mmol/L (3.3-5.1); Sodium 140 mmol/L (135-145); Total Iron Binding Capacity 348 mcg/dL (228-428); Total Protein 6.8 g/dL (6.5-8.0); Triglycerides 89 mg/dL; Unsaturated Iron Binding 248 ug/dL
[2021-05-12 11:00] LABS: Thyroid Stimulating Hormone 1.45 uIU/mL (0.32-4.0); Vitamin D 25-OH Total 66.6 ng/mL (>30)
[2021-05-12 11:03] LABS: Estimated Average Glucose 97 mg/dL
[2021-05-12 11:20] LABS: Vitamin B12 702 pg/mL (200-900)
[2021-05-17 15:37] LABS: Vitamin B1 18 nmol/L (8-30)
[2021-05-18 03:16] LABS: Zinc 66 mcg/dL (60-130)
[2021-05-18 19:51] LABS: Vitamin A 51 mcg/dL (38-98)
== END 2021-05-12 09:19 | disposition home or self-care (01) ==
LOC: HO.LAB 09:18
PROVIDERS: PCP Internal Medicine; Visit Provider Surgery
DX: Z01.818 Encounter for other preprocedural examination (principal); K91.2 Postsurgical malabsorption, not elsewhere classified; Z90.3 Acquired absence of stomach [part of]
CPT/HCPCS: 36415; 80053; 80061; 82306; 82607; 83036; 83540; 84425; 84443; 84590; 84630; 85025; 86140

== ENCOUNTER → 2021-06-07 08:14 | Outpatient (BNVA) | payer OTHER, SELFPAY | PROVIDERS: PCP Internal Medicine; Visit Provider Dietitian, Registered | DX: E66.3 Overweight (principal) | CPT/HCPCS: 97803 ==

== ENCOUNTER → 2021-08-17 15:35 | Outpatient (BNVA) | payer OTHER, SELFPAY | PROVIDERS: PCP Internal Medicine; Referring Provider Internal Medicine; Visit Provider Surgery | DX: E66.3 Overweight (principal); Z68.29 Body mass index [BMI] 29.0-29.9, adult | CPT/HCPCS: 99212 ==

== ENCOUNTER → 2021-09-13 08:02 | Outpatient (BNVA) | payer OTHER, SELFPAY | PROVIDERS: PCP Internal Medicine; Visit Provider Dietitian, Registered | DX: E66.3 Overweight (principal) | CPT/HCPCS: 97803 ==

== ENCOUNTER 2021-10-24 17:11 | Emergency (ER) | payer OTHER, SELFPAY ==
--- NOTE | ~2021-10-24 | XR_ITS ---
EXAMINATION: XR CHEST CLINICAL INFORMATION: Cough. COMPARISON: Chest radiograph dated 07/15/2020. TECHNIQUE: Frontal view of the chest was obtained. FINDINGS: The lungs are clear. The cardiomediastinal silhouette is normal in size. There is no pleural effusion or pneumothorax. No acute osseous abnormality. XR/XR chest 1V IMPRESSION: No acute cardiopulmonary findings.
[2021-10-24 18:57] VITALS: BP 146/91; PULSE 92; RESP 18; TEMP 36.8; O2SAT 100; BMI 26.6
== END 2021-10-24 20:46 | disposition left against medical advice (07) ==
LOC: HO.ED 20:37
PROVIDERS: Emergency Provider Emergency Medicine; PCP Internal Medicine
DX: U07.1 COVID-19 (principal)
CPT/HCPCS: 71045; 99282; 99283

== ENCOUNTER → 2021-11-10 10:52 | Outpatient (BNVA) | payer OTHER, SELFPAY | PROVIDERS: PCP Internal Medicine; Referring Provider Internal Medicine; Visit Provider Physician Assistant Surgical ==

== ENCOUNTER 2021-11-10 11:47 | Outpatient (REF) | payer OTHER, SELFPAY ==
[2021-11-10 12:13] LABS: MANUAL DIFF FLAG NO
[2021-11-10 12:20] LABS: Basophils Percent Auto 0.3 % (0-2); Eosinophils Percent Auto 0.1 % (0-4); Hematocrit 37.2 % (37.0-47.0); Hemoglobin 12.4 g/dl (12.0-16.0); Imm Gran Abs Auto 0.02 X10*3/uL (0.00-0.03); Imm Gran Pct Auto 0.3 % (0.0-0.4); Lymphocytes Absolute Auto 2.1 X10*3/uL (1.2-4.9); Lymphocytes Percent Auto 29.4 % (20-40); Mean Corpuscular HGB Conc 33.3 g/dl (31.0-35.0); Mean Corpuscular Hemoglobin 29.8 pg (27.0-33.0); Mean Corpuscular Volume 89.4 fL (80.0-98.0); Mean Platelet Volume 10.3 fL (9.4-12.3); Monocytes Absolute Auto 0.4 X10*3/uL (0.1-1.2); Monocytes Percent Auto 5.8 % (2-11); Neutrophils Absolute Auto 4.6 x10*3/uL (2.0-8.3); Neutrophils Percent Auto 64.1 % (45-73); Platelet Count 267 X10*3/uL (160-400); Red Blood Count 4.16 X10*6/uL (4.20-5.50); Red Cell Distribution Width 13.2 % (11.0-16.0); White Blood Count 7.2 X10*3/uL (4.8-10.8)
[2021-11-10 12:39] LABS: Estimated Average Glucose 97 mg/dL
[2021-11-10 12:48] LABS: Anion Gap 10 (12-20); Blood Urea Nitrogen 16 mg/dL (9-16); C Reactive Protein 0.69 mg/dL (< or = 0.50); Calcium 9.5 mg/dL (8.4-10.2); Carbon Dioxide 26 mmol/L (22-29); Chloride 108 mmol/L (96-108); Cholesterol 168 mg/dL; Estimated Glomerular Filt Rate > 60; Glucose Random 85 mg/dL (60-115); HDL Cholesterol 80 mg/dL; Iron 145 mcg/dL (30-160); LDL Cholesterol Calculated 73 mg/dl; Percent Iron Saturation 38 % (15-50); Potassium 4.2 mmol/L (3.3-5.1); Sodium 140 mmol/L (135-145); Total Iron Binding Capacity 384 mcg/dL (228-428); Triglycerides 76 mg/dL; Unsaturated Iron Binding 239 ug/dL
[2021-11-10 13:10] LABS: TSH reflex Free T4 1.85 uIU/mL (0.32-4.0); Vitamin D 25-OH Total 63.5 ng/mL (>30)
[2021-11-10 13:13] LABS: Ferritin 106 ng/mL (10-122)
[2021-11-10 13:17] LABS: Folate > 20.0 ng/mL (> or = 4.0); Vitamin B12 810 pg/mL (200-900)
[2021-11-14 13:32] LABS: Calcium (PTHI) 9.4 mg/dL (8.6-10.2); PTHI 40 pg/mL (14-64)
[2021-11-15 01:27] LABS: Zinc 77 mcg/dL (60-130)
[2021-11-15 19:17] LABS: Vitamin A 78 mcg/dL (38-98)
[2021-11-17 15:42] LABS: Vitamin B1 38 nmol/L (8-30)
== END 2021-11-10 11:48 | disposition home or self-care (01) ==
LOC: HO.LAB 11:47
PROVIDERS: PCP Internal Medicine; Visit Provider Physician Assistant Surgical
DX: E66.3 Overweight (principal); K91.2 Postsurgical malabsorption, not elsewhere classified; Z90.3 Acquired absence of stomach [part of]; Z98.890 Other specified postprocedural states; Z87.19 Personal history of other diseases of the digestive system
CPT/HCPCS: 36415; 80048; 80061; 82306; 82607; 82728; 82746; 83036; 83540; 83970; 84425; 84443; 84590; 84630; 85025; 86140; 99212

== ENCOUNTER 2021-11-24 09:41 | Outpatient (REF) | payer OTHER, SELFPAY ==
--- NOTE | ~2021-11-24 | MR_ITS ---
EXAMINATION: MR BRAIN WITHOUT AND WITH CONTRAST CLINICAL INFORMATION: Follow-up right pontine lesion. COMPARISON: MRI scan of the brain 07/12/2020. TECHNIQUE: Multiplanar, multisequence MRI of the brain was obtained before and after the intravenous administration of 7.5 mL Gadavist. FINDINGS: No diffusion abnormalities are identified to suggest an acute or subacute infarct. No mass effect or midline shift is seen. The ventricles and sulci are normal in size. The study redemonstrates an area of hyperintense T2 signal with corresponding T1 and FLAIR signal in the anteromedial right frontal lobe inferiorly with surrounding mild gliotic changes. It measures 2.6 x 1.4 x 1.4 cm, similar compared to prior imaging. There is no abnormal enhancement in or around this area. On the current study, the area of hyperintense T2 and FLAIR signal previously demonstrated in the right aspect of the vanessa is not as prominent compared to prior imaging. However, it does demonstrate mild hazy enhancement. Brain parenchymal signal elsewhere appears normal. On postcontrast imaging, there is no other abnormal parenchymal or leptomeningeal enhancement. There is no evidence of acute hemorrhage. The cerebellar tonsils have normal contour and position, and the craniocervical junction appears normal. Marrow signal and midline structures are normal. The major intracranial flow-voids at the level of the [place] are preserved. The dural venous sinus flow-voids are maintained. The mastoid air cells and paranasal sinuses are well-aerated. MR/MR head/brain wo/w con IMPRESSION: 1. There are no acute bleeds or infarcts. No masses are demonstrated. 2. The study demonstrates an area of encephalomalacia with minimal peripheral gliotic change in the right frontal region, which appears stable. 3. The previously demonstrated area of hyperintense signal on T2 and FLAIR in the vanessa is not as prominent on the current study, but does demonstrate minimal enhancement. This area does not demonstrate restricted diffusion, and is unlikely to be due to active demyelination. It may be consistent with a small vascular malformation such as a capillary telangiectasia. Elsewhere brain parenchymal signal appears normal.
== END 2021-11-24 09:42 | disposition home or self-care (01) ==
LOC: HO.MRI 09:41
PROVIDERS: Visit Provider Psychiatry & Neurology Neurology
DX: G93.9 Disorder of brain, unspecified (principal)
CPT/HCPCS: 70553; A9585

== ENCOUNTER 2021-12-08 10:16 | Outpatient (REF) | payer OTHER, SELFPAY ==
--- NOTE | ~2021-12-08 | FL_ITS ---
EXAMINATION: XR FLUOROSCOPY UPPER GI WITH AIR CLINICAL INFORMATION: Heartburn COMPARISON: None TECHNIQUE: Air-contrast upper GI examination. FINDINGS: There is normal apposition of vocal cords while saying E. There is normal elevation of the soft palate while saying candy. Patient swallowed thin and thick barium without difficulty. No nasopharyngeal reflux or tracheal aspiration. There is normal esophageal motility. No persistent stricture or ulceration is noted. No hiatal hernia. There was noted to be some spontaneous gastroesophageal reflux to the level of the aysha which cleared rapidly. Patient is status post previous gastric surgery with the appearance of a possible gastric sleeve. There is a region of narrowing but which is distensible within the mid gastric body. No ulceration or suspicious mass is appreciated. There is no delay in gastric emptying. The duodenal bulb and sweep appear unremarkable. FLUOROSCOPY TIME: 1.9 minutes DOSE AREA PRODUCT: 10.430 Gy-cm2 (richey-centimeter squared) FL/FL upper GI w air IMPRESSION: Mild gastroesophageal reflux which clears rapidly. Status post previous gastric surgery.
== END 2021-12-08 10:17 | disposition home or self-care (01) ==
LOC: HO.XRAY 10:16
PROVIDERS: Visit Provider Physician Assistant Surgical
DX: K21.9 Gastro-esophageal reflux disease without esophagitis (principal); Z98.890 Other specified postprocedural states; Z87.19 Personal history of other diseases of the digestive system
CPT/HCPCS: 74246

== ENCOUNTER → 2022-05-10 15:43 | Outpatient (BNVA) | payer OTHER, SELFPAY | PROVIDERS: PCP Internal Medicine; Visit Provider Physician Assistant Surgical | DX: E66.3 Overweight (principal); Z68.26 Body mass index [BMI] 26.0-26.9, adult; L98.7 Excessive and redundant skin and subcutaneous tissue; Z87.19 Personal history of other diseases of the digestive system; Z98.84 Bariatric surgery status | CPT/HCPCS: 99212 ==

== ENCOUNTER 2022-06-08 09:48 | Outpatient (REF) | payer OTHER, SELFPAY ==
[2022-06-08 10:10] LABS: MANUAL DIFF FLAG NO
[2022-06-08 10:46] LABS: Basophils Percent Auto 0.4 % (0-2); Eosinophils Percent Auto 0.4 % (0-4); Hematocrit 41.4 % (37.0-47.0); Hemoglobin 13.9 g/dl (12.0-16.0); Imm Gran Abs Auto 0.01 X10*3/uL (0.00-0.03); Imm Gran Pct Auto 0.2 % (0.0-0.4); Lymphocytes Absolute Auto 1.7 X10*3/uL (1.2-4.9); Lymphocytes Percent Auto 33.4 % (20-40); Mean Corpuscular HGB Conc 33.6 g/dl (31.0-35.0); Mean Corpuscular Hemoglobin 30.3 pg (27.0-33.0); Mean Corpuscular Volume 90.4 fL (80.0-98.0); Mean Platelet Volume 10.2 fL (9.4-12.3); Monocytes Absolute Auto 0.3 X10*3/uL (0.1-1.2); Monocytes Percent Auto 6.2 % (2-11); Neutrophils Absolute Auto 3.1 x10*3/uL (2.0-8.3); Neutrophils Percent Auto 59.4 % (45-73); Platelet Count 261 X10*3/uL (160-400); Red Blood Count 4.58 X10*6/uL (4.20-5.50); Red Cell Distribution Width 13.1 % (11.0-16.0); White Blood Count 5.2 X10*3/uL (4.8-10.8)
[2022-06-08 11:04] LABS: Estimated Average Glucose 94 mg/dL; Hemoglobin A1c % 4.9 %
[2022-06-08 11:35] LABS: Alanine Aminotransferase 22 U/L (0-31); Albumin Level 3.8 g/dL (3.5-5.0); Alkaline Phosphatase 75 U/L (39-117); Anion Gap 13 (12-20); Aspartate Amino Transferase 23 U/L (5-31); Bilirubin Total 0.5 mg/dL (0.0-1.0); Blood Urea Nitrogen 11 mg/dL (9-16); C Reactive Protein 0.38 mg/dL (< or = 0.50); Calcium 8.9 mg/dL (8.4-10.2); Carbon Dioxide 26 mmol/L (22-29); Chloride 107 mmol/L (96-108); Cholesterol 178 mg/dL; Estimated Glomerular Filt Rate > 60; Glucose Random 73 mg/dL (60-115); HDL Cholesterol 88 mg/dL; Iron 175 mcg/dL (30-160); LDL Cholesterol Calculated 77 mg/dl; Percent Iron Saturation 44 % (15-50); Potassium 4.6 mmol/L (3.3-5.1); Sodium 141 mmol/L (135-145); Total Iron Binding Capacity 397 mcg/dL (228-428); Total Protein 6.8 g/dL (6.5-8.0); Triglycerides 67 mg/dL; Unsaturated Iron Binding 222 ug/dL
[2022-06-08 11:44] LABS: Ferritin 33 ng/mL (10-122); Insulin 4 uU/mL (2-29); Vitamin D 25-OH Total 105.6 ng/mL (>30)
[2022-06-08 11:57] LABS: Folate 17.9 ng/mL (> or = 4.0); Vitamin B12 1029 pg/mL (200-900)
[2022-06-11 13:06] LABS: Calcium (PTHI) 8.7 mg/dL (8.6-10.2); PTHI 44 pg/mL (16-77)
[2022-06-13 06:21] LABS: Zinc 80 mcg/dL (60-130)
[2022-06-13 18:41] LABS: Vitamin A 76 mcg/dL (38-98)
[2022-06-14 16:06] LABS: Vitamin B1 16 nmol/L (8-30)
== END 2022-06-08 09:49 | disposition home or self-care (01) ==
LOC: HO.LAB 09:48
PROVIDERS: PCP Internal Medicine; Visit Provider Physician Assistant Surgical
DX: Z98.84 Bariatric surgery status (principal)
CPT/HCPCS: 36415; 80053; 80061; 82306; 82607; 82728; 82746; 83036; 83525; 83540; 83970; 84425; 84443; 84590; 84630; 85025; 86140

== ENCOUNTER → 2022-06-14 15:48 | Outpatient (BNVA) | payer OTHER, SELFPAY | PROVIDERS: PCP Internal Medicine; Visit Provider Physician Assistant Surgical | DX: L98.7 Excessive and redundant skin and subcutaneous tissue (principal); E66.3 Overweight; Z68.27 Body mass index [BMI] 27.0-27.9, adult; Z98.84 Bariatric surgery status; Z71.3 Dietary counseling and surveillance | CPT/HCPCS: 99212 ==

== ENCOUNTER 2022-08-04 08:41 | Outpatient (REF) | payer OTHER, SELFPAY ==
--- NOTE | ~2022-08-04 | XR_ITS ---
EXAMINATION: XR CHEST CLINICAL INFORMATION: Covid infection COMPARISON: Previous chest x-ray October 2021 TECHNIQUE: 2 views of the chest were obtained. FINDINGS: No significant abnormality is noted involving the heart, lungs, mediastinum, bony thorax or soft tissues. XR/XR chest 2V IMPRESSION: Unremarkable examination.
== END 2022-08-04 08:42 | disposition home or self-care (01) ==
LOC: HO.XRAY 08:41
PROVIDERS: PCP Internal Medicine; Visit Provider Surgery
DX: U07.1 COVID-19 (principal)
CPT/HCPCS: 71046

== ENCOUNTER 2022-08-08 08:25 | Day surgery (SDC) | payer OTHER, SELFPAY ==
[2022-08-04 09:57] LABS: COVID-19 Test Negative (Negative); IDNOW Serial# 16C4AD1C
[2022-08-07 14:09] LABS: COVID-19 Test Negative (Negative); IDNOW Serial# 9DB6401D
[2022-08-08] VITALS (10 sets, daily range): BP systolic 116–144; BP diastolic 71–100; PULSE 78–103; RESP 17–18; TEMP 36.2–37.4; O2SAT 96–100; BMI 27.4
[2022-08-08 08:54] LABS: UPreg QC Valid YES; Urine Pregnancy NEGATIVE (NEGATIVE)
[2022-08-08] MEDS: Lactated Ringers 1,000 ML 100 ML IVCONT (08:59)
--- NOTE | 2022-08-08 09:30 | HO.ANESPROP2 ---
[facility] Active Problems Active Problems: All Active Problems (Updated 08/01/22 @ 13:51 by Callum Corona MD) COVID-19 (Acute) Pre-op evaluation (Acute) BMI 33.0-33.9,adult (Acute) BMI 30.0-30.9,adult (Acute) BMI 28.0-28.9,adult (Acute) Excess skin of abdomen (Acute) Panniculitis (Acute) Overweight (BMI 25.0-29.9) (Acute) BMI 29.0-29.9,adult (Acute) S/P laparoscopic sleeve gastrectomy (Acute) Intestinal malabsorption following gastrectomy (Acute) Constipation (Acute) History of repair of hiatal hernia (Acute) Obesity (BMI 30-39.9) (Acute) Past Medical History Medical History (Updated 08/01/22 @ 13:51 by Callum Corona MD) BMI 29.0-29.9,adult BMI 37.0-37.9, adult Body mass index (BMI) of 37.0-37.9 in adult Constipation Dysphagia Eczema Encephalomalacia on imaging study Hiatal hernia Insomnia Intestinal malabsorption following gastrectomy Morbid obesity due to excess calories OAB (overactive bladder) Obesity (BMI 30-39.9) Overweight (BMI 25.0-29.9) Preoperative examination Shortness of breath Urinary tract infection Family History Family History Father HTN (hypertension) Mother HTN (hypertension) Brother No problems noted. Sister No problems noted. Sister No problems noted. Sister No problems noted. Daughter No problems noted. Daughter Brain tumor Seizure disorder Family history of problems with anesthesia: No Surgical History Surgical History (Updated 07/25/22 @ 14:49 by Gilma Crystal RN) History of bladder surgery History of esophagogastroduodenoscopy (EGD) History of repair of hiatal hernia History of tooth extraction Hx of brain surgery S/P laparoscopic sleeve gastrectomy History of Problems with Anesthesia: No Social History Social History Are you a primary resident caregiver to a significant other at home: Yes (2 daughters, will have help post-op, friend moving in ) Do you presently have visiting nurse or other home services: No Alcohol intake: never Patient Tobacco Use Status: Never used Tobacco Are you DNR?: No Advance Directives: No Advance Directives Information Provided: Yes Recently lost weight without trying: Yes Nutrition Risks: No Nutritional Risk Patient : No service: No Current occupational status: employed Meds Allergies Allergy/AdvReac Type Severity Reaction Status Date / Time grass Allergy Severe throat Uncoded 07/21/22 09:44 closure from cut grass shellfish Allergy Severe throat Uncoded 07/21/22 09:44 closure from steamed shellfish banana Allergy Mild Hives Uncoded 07/21/22 09:44 coffee deal Allergy Mild Hives Uncoded 07/21/22 09:44 dust/dustmites Allergy Mild Itching Uncoded 07/21/22 09:44 Active Medications: Current Medications Lactated Ringer's (Lr) 1,000 mls @ 100 mls/hr IVCONT .Q10H [facility] Last Admin: 08/08/22 08:59 Dose: 100 mls/hr Lactated Ringer's (Lr) 1,000 mls @ 80 mls/hr IVCONT .[id number] [facility] Last Admin: 08/08/22 08:59 Dose: Not Given Home Medications Medication Instructions Recorded Confirmed Last Taken Type albuterol sulfate 90 mcg/actuation 1 puff inhalation Q4-6H PRN 09/14/20 07/25/22 Unknown History aerosol inhaler Wheezing clobetasol 0.05 % topical cream 1 appl topical BID PRN Skin 09/14/20 07/25/22 Unknown History Irritation cyclobenzaprine 10 mg tablet 10 mg PO BEDTIME 09/14/20 07/25/22 Unknown History fexofenadine 180 mg tablet 180 mg PO DAILY 09/14/20 07/25/22 Unknown History zolpidem 5 mg tablet 5 mg PO BEDTIME PRN Sleep 09/14/20 07/25/22 Unknown History etonogestrel 0.12 mg-ethinyl 1 vag ring vaginal Q4W 10/27/20 07/25/22 Unknown History estradiol 0.015 mg/24 hr vaginal ring (NuvaRing) montelukast 10 mg tablet 1 tab PO BEDTIME 10/27/20 07/25/22 Unknown History celebrate bariatric mvi 1 tab PO DAILY 11/23/20 07/25/22 Unknown History psyllium husk 0.4 gram capsule 0.8 g PO TID 12/30/20 07/21/22 Unknown History (Metamucil) calcium citrate 1,000 mg tablet 1,000 mg PO DAILY 05/10/21 07/25/22 Unknown History trazodone 150 mg tablet 150 mg PO BEDTIME 05/10/22 07/25/22 Unknown History Exam Exam Date and Time: August 08, 2022 0930 Height,Weight and Vital Signs: Height 5 ft 6 in Weight 77.111 kg Last Vital Signs Temp 97.1 F 08/08/22 08:32 Pulse 85 08/08/22 08:32 Resp 17 08/08/22 08:32 BP 126/92 H 08/08/22 08:32 Pulse Ox 99 08/08/22 08:32 O2 Del Method 08/08/22 08:32 Pertinent Lab Results Pertinent Lab Results: Laboratory Tests 08/04/22 08/07/22 08/07/22 09:20 13:40 14:05 Urine Test COVID-19 ([facility]) Negative Negative COVID-19 Clin Com See Note See Note Blood Type A Negative Antibody Screen NEGATIVE 08/08/22 08:30 Urine Test NEGATIVE COVID-19 ([facility]) COVID-19 Clin Com Blood Type Antibody Screen Airway Mallampati Class: I TM Dist: >3cm Neck ROM: Full Assessment and Plan Assessment Anesthesia Assessment: Anesthesia Plan Discussed and Chart Reviewed Final Anesthetic Review Family History of Problems with Anesthesia: No History of Problems with Anesthesia: No NPO: Yes ASA Class: II Final Preanesthetic Review: No Changes in Pt Med Stat, Meds/Allgs Chart Reviewed, Consent Obtained/Reviewed and Anes Risks/Benef Reviewed Patient Risk: Intermediate Procedure Risk: Intermediate Anesthetic Plan Anesthetic Plan: GA Disposition: Standard PACU
--- NOTE | 2022-08-08 09:51 | PC.NURSE ---
pt has abrasion left leg and and left elbow occurred anestheisa ans dr farris aware walking dog and her dog took off and she fell
--- NOTE | 2022-08-08 10:08 | PM.OP ---
Brief Operative Note Date of Service: 08/08/22 Pre-op diagnosis: panniculitis Post-op diagnosis: same Procedure: PROCEDURE: Panniculectomy with umbilical transposition and bilateral subcutaneous fat flaps INDICATION: This a 37 year old female who underwent laparoscopic sleeve gastrectomy on 11/10/2020. She had an excellent result achieving a BMI of 27.4 kg/m2 with a total weight loss of 77lbs, or 31.1% of her TBWL. As a result, she has developed panniculitis which has not resolved despite continuous use of clotrimazole ointment as well as skin irritation. On exam she has extreme skin laxity due to massive weight loss, with the abdominal pannus completely hanging 4cm below the pubis. Panniculectomy was recommended. We discussed the two options for the panniculectomy of using a combined vertical and horizontal incisions or just a horizontal (bikini) incision. It was my recommendation to do only horizontal incision based on her body habitus and skin laxity. The patient agreed with this. Risks and complications were discussed with the patient including bleeding, infection, umbilical loss, flap necrosis, asymmetry, dehiscence, seroma, VTE. The patient understood the risks and was in agreement to proceed with surgery. PROCEDURE: The incisions were appropriately marked at the preop area with the patient standing and laying down. After induction of general anesthesia a Lynne catheter and pneumatic compression devices were placed. The patient was prepped and draped in the usual sterile manner and the incisions were marked again and confirmed. The skin was infiltrated with lidocaine and epinephrine. The #10 blade scalpel was used for the large incisions and the #15 blade scalpel for the umbilicus. Cautery was used to divide the subcutaneous tissues until the fascia was identified. Then I used the cautery to separate the pannus from the fascia. The inferior incision was made initially and I mobilized the flap for a several centimeters cephalad to the umbilicus. The umbilicus was incised circumferentially and detached from the surrounding tissues all the way to the fascia while its stalk was preserved. With the patient in reflex position I confirmed that the skin flaps were appropriate and would allow for the tissues to come together with reasonable tension. At that point a horizontal incision was made 4 cm above the umbilicus. #10 blade was used for the skin, cautery for the dermis and the remaining tissues. A subcutaneous fat flap was raised from the upper skin flap in order to fill the space under the skin and support the closure of the two flaps. In addition the inferior flap was mobilized caudally for a few centimeters to create a space for the subcutaneous fat flap as well as relieve tension from the closure. A circumferential incision was made at the area where the umbilicus would be re-implanted. The umbilicus was appropriately oriented and was delivered through the defect and was secured in place with a Praful. No bleeding was noted anywhere. One MEGAN drain was placed from the left corner of the horizontal incision across the wound and was secured in place with a silk suture. A total of 14ml of Zynrelef was applied on top of the fascia and under the subcutaneous fat flaps. The subcutaneous fat flap was secured under the inferior flap with several interrupted 3.0 Monocryl sutures. The two flaps were brought together and were attached at the midline of the horizontal incision with a #3.0 Monocryl suture. At that point the umbilicus was properly oriented and was re-approximated to the skin with 8 interrupted 3.0 Monocryl sutures. In a similar fashion the skin flaps were re-approximated with multiple 3.0 Monocryl sutures. The skin was closed in all incisions and umbilicus with 4.0 Monocryl sutures. Steri-strips, xeroform gauzes and gauzes were used to cover the incisions. An abdominal binder was also placed. The was awaken and was transferred to the recover room in a stable condition. I was present and performed the entire procedure. Triston was the delivery driver assistant. Murtaza Corona MD, PhD, FACS Surgeon: Callum Corona MD Surgeon: Callum Corona MD Anesthesia: GETA and local (& 14ml of Zynrelef) Was an Lace Pinner used for this Procedure?: No Lace Pinner: Jenni Goldstein Estimated blood loss (mL): 10 IV fluids (mL): 2,000 Urine output (mL): 200 Pathology: other (Abdominal pannus) Condition: stable Disposition: PACU
[2022-08-08] MEDS: Haloperidol Lactate 5 MG/ML VIAL IV (15:34)
== END 2022-08-08 17:37 | disposition home or self-care (01) ==
PROVIDERS: Nurse Practitioner; Physician Assistant Surgical; PCP Internal Medicine; Visit Provider Surgery
PROC: 0JB80ZZ Excision of Abdomen Subcutaneous Tissue and Fascia, Open Approach (ICD-10-PCS; CPT 15830; principal; 2022-08-08 10:10)
DX: L98.7 Excessive and redundant skin and subcutaneous tissue (principal); K91.2 Postsurgical malabsorption, not elsewhere classified; M79.3 Panniculitis, unspecified; Z90.3 Acquired absence of stomach [part of]; Z98.84 Bariatric surgery status; K44.9 Diaphragmatic hernia without obstruction or gangrene; E66.3 Overweight; Z68.29 Body mass index [BMI] 29.0-29.9, adult; K59.00 Constipation, unspecified; Z79.899 Other long term (current) drug therapy; Z20.822 Contact with and (suspected) exposure to COVID-19
CPT/HCPCS: 15830; 15847; 36415; 80053; 81025; 85025; 85610; 85730; 86850; 86900; 86901; 87635; 88304; C9088; J0131; J0690; J1100; J1170; J2250; J2405; J2550; J3010; J3370

== ENCOUNTER → 2022-08-16 11:22 | Outpatient (BNVA) | payer OTHER, SELFPAY | PROVIDERS: PCP Internal Medicine; Visit Provider Physician Assistant Surgical | DX: Z48.817 Encounter for surgical aftercare following surgery on the skin and subcutaneous tissue (principal); E66.3 Overweight; Z98.84 Bariatric surgery status; Z98.890 Other specified postprocedural states; Z68.26 Body mass index [BMI] 26.0-26.9, adult | CPT/HCPCS: 99212 ==

== ENCOUNTER → 2022-08-24 14:18 | Outpatient (BNVA) | payer OTHER, SELFPAY | PROVIDERS: PCP Internal Medicine; Referring Provider Internal Medicine; Visit Provider Physician Assistant Surgical | DX: Z98.890 Other specified postprocedural states (principal); E66.3 Overweight; Z98.84 Bariatric surgery status | CPT/HCPCS: 99212 ==

== ENCOUNTER → 2022-09-01 13:30 | Outpatient (BNVA) | payer OTHER, SELFPAY | PROVIDERS: PCP Internal Medicine; Visit Provider Physician Assistant Surgical | DX: E66.3 Overweight (principal); Z98.84 Bariatric surgery status; Z98.890 Other specified postprocedural states | CPT/HCPCS: 99212 ==

== ENCOUNTER → 2022-09-08 11:48 | Outpatient (BNVA) | payer OTHER, SELFPAY | PROVIDERS: PCP Internal Medicine; Visit Provider Physician Assistant Surgical | DX: E66.3 Overweight (principal); Z68.26 Body mass index [BMI] 26.0-26.9, adult; Z98.84 Bariatric surgery status; Z98.890 Other specified postprocedural states | CPT/HCPCS: 99212 ==

== ENCOUNTER → 2022-09-20 13:30 | Outpatient (BNVA) | payer OTHER, SELFPAY | PROVIDERS: PCP Internal Medicine; Visit Provider Physician Assistant Surgical | DX: E66.3 Overweight (principal); Z98.890 Other specified postprocedural states; Z98.84 Bariatric surgery status; Z68.26 Body mass index [BMI] 26.0-26.9, adult | CPT/HCPCS: 99212 ==

== ENCOUNTER → 2022-10-03 13:54 | Outpatient (BNVA) | payer OTHER, SELFPAY | PROVIDERS: PCP Internal Medicine; Referring Provider Internal Medicine; Visit Provider Physician Assistant Surgical | DX: E66.3 Overweight (principal); Z98.890 Other specified postprocedural states; Z98.84 Bariatric surgery status | CPT/HCPCS: 99212 ==

== ENCOUNTER → 2022-10-31 13:35 | Outpatient (BNVA) | payer OTHER, SELFPAY | PROVIDERS: PCP Internal Medicine; Visit Provider Physician Assistant Surgical | DX: E66.3 Overweight (principal); L98.7 Excessive and redundant skin and subcutaneous tissue; Z98.84 Bariatric surgery status; Z98.890 Other specified postprocedural states; Z68.27 Body mass index [BMI] 27.0-27.9, adult | CPT/HCPCS: 99212 ==

== ENCOUNTER 2022-11-14 08:51 | Outpatient (REF) | payer OTHER, SELFPAY ==
[2022-11-14 09:23] LABS: MANUAL DIFF FLAG NO
[2022-11-14 10:05] LABS: Basophils Percent Auto 0.5 % (0-2); Hemoglobin 12.4 g/dl (12.0-16.0); Imm Gran Abs Auto 0.03 X10*3/uL (0.00-0.03); Imm Gran Pct Auto 0.4 % (0.0-0.4); Lymphocytes Absolute Auto 3.7 X10*3/uL (1.2-4.9); Lymphocytes Percent Auto 44.9 % (20-40); Mean Corpuscular HGB Conc 32.6 g/dl (31.0-35.0); Mean Corpuscular Hemoglobin 29.3 pg (27.0-33.0); Mean Corpuscular Volume 89.8 fL (80.0-98.0); Mean Platelet Volume 10.2 fL (9.4-12.3); Monocytes Absolute Auto 0.6 X10*3/uL (0.1-1.2); Monocytes Percent Auto 7.1 % (2-11); Neutrophils Absolute Auto 3.9 x10*3/uL (2.0-8.3); Neutrophils Percent Auto 47.1 % (45-73); Platelet Count 249 X10*3/uL (160-400); Red Blood Count 4.23 X10*6/uL (4.20-5.50); Red Cell Distribution Width 12.7 % (11.0-16.0); White Blood Count 8.2 X10*3/uL (4.8-10.8)
[2022-11-14 10:08] LABS: Estimated Average Glucose 91 mg/dL; Hemoglobin A1c % 4.8 %
[2022-11-14 11:15] LABS: Alanine Aminotransferase 23 U/L (0-31); Albumin Level 3.6 g/dL (3.5-5.0); Alkaline Phosphatase 66 U/L (39-117); Anion Gap 10 (12-20); Aspartate Amino Transferase 24 U/L (5-31); Bilirubin Total 0.5 mg/dL (0.0-1.0); Blood Urea Nitrogen 15 mg/dL (9-16); C Reactive Protein 0.39 mg/dL (< or = 0.50); Calcium 8.9 mg/dL (8.4-10.2); Carbon Dioxide 28 mmol/L (22-29); Chloride 106 mmol/L (96-108); Cholesterol 185 mg/dL; Estimated Glomerular Filt Rate > 60; Glucose Random 72 mg/dL (60-115); HDL Cholesterol 85 mg/dL; Iron 117 mcg/dL (30-160); LDL Cholesterol Calculated 87 mg/dl; Percent Iron Saturation 33 % (15-50); Sodium 140 mmol/L (135-145); Total Iron Binding Capacity 356 mcg/dL (228-428); Total Protein 6.5 g/dL (6.5-8.0); Triglycerides 65 mg/dL; Unsaturated Iron Binding 239 ug/dL
[2022-11-14 11:46] LABS: Ferritin 26 ng/mL (10-122); Insulin 3 uU/mL (2-29); TSH reflex Free T4 3.39 uIU/mL (0.32-4.0); Vitamin D 25-OH Total 87.1 ng/mL (>30)
[2022-11-14 12:03] LABS: Folate 16.2 ng/mL (> or = 4.0)
[2022-11-14 12:46] LABS: Vitamin B12 874 pg/mL (200-900)
[2022-11-15 16:14] LABS: Calcium (PTHI) 8.9 mg/dL (8.6-10.2); PTHI 44 pg/mL (16-77)
[2022-11-17 16:23] LABS: Zinc 61 mcg/dL (60-130)
== END 2022-11-14 08:52 | disposition home or self-care (01) ==
LOC: HO.LAB 08:51
PROVIDERS: PCP Internal Medicine; Visit Provider Physician Assistant Surgical
DX: Z98.84 Bariatric surgery status (principal)
CPT/HCPCS: 36415; 80053; 80061; 82306; 82607; 82728; 82746; 83036; 83525; 83540; 83970; 84443; 84630; 85025; 86140

== ENCOUNTER → 2022-12-06 08:10 | Outpatient (BNVA) | payer OTHER, SELFPAY | PROVIDERS: PCP Internal Medicine; Visit Provider Surgery | DX: Z13.89 Encounter for screening for other disorder (principal) ==

== ENCOUNTER 2022-12-21 06:46 | Day surgery (SDC) | payer OTHER, SELFPAY ==
[2022-12-13 14:46] VITALS: BMI 26.8
[2022-12-14 14:47] LABS: MANUAL DIFF FLAG NO
[2022-12-14 15:00] LABS: Basophils Percent Auto 0.3 % (0-2); Eosinophils Percent Auto 0.3 % (0-4); Hematocrit 37.3 % (37.0-47.0); Hemoglobin 12.4 g/dl (12.0-16.0); Imm Gran Abs Auto 0.01 X10*3/uL (0.00-0.03); Imm Gran Pct Auto 0.1 % (0.0-0.4); Lymphocytes Absolute Auto 2.3 X10*3/uL (1.2-4.9); Lymphocytes Percent Auto 33.2 % (20-40); Mean Corpuscular HGB Conc 33.2 g/dl (31.0-35.0); Mean Corpuscular Hemoglobin 29.5 pg (27.0-33.0); Mean Corpuscular Volume 88.6 fL (80.0-98.0); Mean Platelet Volume 9.7 fL (9.4-12.3); Monocytes Absolute Auto 0.5 X10*3/uL (0.1-1.2); Monocytes Percent Auto 6.6 % (2-11); Neutrophils Absolute Auto 4.1 x10*3/uL (2.0-8.3); Neutrophils Percent Auto 59.5 % (45-73); Platelet Count 251 X10*3/uL (160-400); Red Blood Count 4.21 X10*6/uL (4.20-5.50); Red Cell Distribution Width 12.4 % (11.0-16.0)
[2022-12-14 15:07] LABS: Partial Thromboplastin Time 29.2 SEC (26.0-36.4)
[2022-12-14 15:15] LABS: Estimated Average Glucose 97 mg/dL
[2022-12-14 15:30] LABS: Alanine Aminotransferase 25 U/L (0-31); Albumin Level 3.6 g/dL (3.5-5.0); Alkaline Phosphatase 72 U/L (39-117); Anion Gap 14 (12-20); Aspartate Amino Transferase 25 U/L (5-31); Bilirubin Total 0.3 mg/dL (0.0-1.0); Blood Urea Nitrogen 15 mg/dL (9-16); Calcium 8.7 mg/dL (8.4-10.2); Carbon Dioxide 25 mmol/L (22-29); Chloride 106 mmol/L (96-108); Creatinine Clr Calc Pharmacy 100.4; Estimated Glomerular Filt Rate > 60; Glucose Random 98 mg/dL (60-115); Potassium 4.5 mmol/L (3.3-5.1); Sodium 140 mmol/L (135-145); Total Protein 6.3 g/dL (6.5-8.0)
--- NOTE | 2022-12-16 19:37 | MHC.SHP ---
Pre-Procedural Eval Section A Date of Service: 12/16/22 The patient is an INPATIENT: No The History & Physical has been completed within 30 days and I have reviewed it.: Yes Section B Chief Complaint: Excessive and redundant skin and subcutaneous tiss Relevant Family History (Specify if Yes): No Relevant Social History: None Present Medications: None Medical History: No relevant PMH History of Previous Operations: Relevant previous surgery/procedure and date(s) (lap sleeve gastrectomy) Allergies: Allergies Allergy/AdvReac Type Severity Reaction Status Date / Time grass Allergy Severe throat Uncoded 12/06/22 08:46 closure from cut grass shellfish Allergy Severe throat Uncoded 12/06/22 08:46 closure from steamed shellfish banana Allergy Mild Hives Uncoded 12/06/22 08:46 coffee deal Allergy Mild Hives Uncoded 12/06/22 08:46 dust/dustmites Allergy Mild Itching Uncoded 12/06/22 08:46 Review of Systems Sugical H&P ROS: Negative: Constitution, Cardiovascular, Respiratory, Neurological, Psychiatric, Hem-Onc, Allergic/Immunologic, Gastrointestinal, Genitourinary, Musculoskeletal, Integumentary, Endocrine and Eyes/Ears/Nose/Throat Exam Surgical H&P Exam: Normal: HEENT, Normal: Heart, Normal: Lungs, Normal: Extremities, Normal: Abdomen and Normal: Neurological and Significant Findings: Skin (cellulitis) Plan Diagnosis/Plan: Unchanged I have reviewed the history and physical and performed a pertinent physical examination on my patient. No changes have occurred unless specified. Time Spent With Patient Time: Total time managing care of this patient today ____ minutes.
[2022-12-20 14:43] LABS: COVID-19 Test Negative (Negative); IDNOW Serial# 16C4AD1C
[2022-12-20 16:22] LABS: Vitamin A 49 mcg/dL (38-98)
[2022-12-21] VITALS (11 sets, daily range): BP systolic 127–166; BP diastolic 82–97; PULSE 77–88; RESP 12–18; TEMP 36.2–36.3; O2SAT 98–100
[2022-12-21 05:53] LABS: Vitamin B1 33 nmol/L (8-30)
[2022-12-21 07:18] LABS: UPreg QC Valid YES; Urine Pregnancy NEGATIVE (NEGATIVE)
[2022-12-21] MEDS: Lactated Ringers 1,000 ML 80 ML IVCONT (07:32)
--- NOTE | 2022-12-21 08:05 | HO.ANESPROP2 ---
HPI - Anesthesia Eval Consult details Narrative: 37 F for brachioplasty and thighplasty [facility] Active Problems Active Problems: All Active Problems (Updated 12/13/22 @ 14:50 by Gilma Crystal RN) BMI 33.0-33.9,adult (Acute) BMI 30.0-30.9,adult (Acute) BMI 28.0-28.9,adult (Acute) Excess skin of abdomen (Acute) Panniculitis (Acute) Pre-op evaluation (Acute) COVID-19 (Acute) S/P panniculectomy (Acute) Overweight (Acute) Excessive skin and subcutaneous tissue (Acute) Overweight (BMI 25.0-29.9) (Acute) BMI 29.0-29.9,adult (Acute) S/P laparoscopic sleeve gastrectomy (Acute) Intestinal malabsorption following gastrectomy (Acute) Constipation (Acute) History of repair of hiatal hernia (Acute) Obesity (BMI 30-39.9) (Acute) Past Medical History Medical History (Updated 12/13/22 @ 14:50 by Gilma Crystal RN) Asthma BMI 29.0-29.9,adult BMI 37.0-37.9, adult Body mass index (BMI) of 37.0-37.9 in adult Constipation Dysphagia Eczema Encephalomalacia on imaging study Hiatal hernia Insomnia Intestinal malabsorption following gastrectomy Morbid obesity due to excess calories OAB (overactive bladder) Obesity (BMI 30-39.9) Overweight (BMI 25.0-29.9) Preoperative examination Shortness of breath Urinary tract infection Functional capacity: independent ambulation Family History Family History Father HTN (hypertension) Mother HTN (hypertension) Brother No problems noted. Sister No problems noted. Sister No problems noted. Sister No problems noted. Daughter No problems noted. Daughter Brain tumor Seizure disorder Family history of problems with anesthesia: No Surgical History Surgical History History of bladder surgery History of esophagogastroduodenoscopy (EGD) History of repair of hiatal hernia History of tooth extraction Hx of brain surgery S/P laparoscopic sleeve gastrectomy History of Problems with Anesthesia: No Social History Social History (Updated 12/13/22 @ 14:51 by Gilma Crystal RN) Are you a primary care director rn to a significant other at home: Yes (2 children, father will assist in the post-op period) Do you presently have visiting nurse or other home services: No Alcohol intake: never Patient Tobacco Use Status: Never used Tobacco service: No Current occupational status: employed Meds Allergies Allergy/AdvReac Type Severity Reaction Status Date / Time grass Allergy Severe throat Uncoded 12/21/22 07:49 closure from cut grass shellfish Allergy Severe throat Uncoded 12/21/22 07:49 closure from steamed shellfish banana Allergy Mild Hives Uncoded 12/21/22 07:49 coffee deal Allergy Mild Hives Uncoded 12/21/22 07:49 dust/dustmites Allergy Mild Itching Uncoded 12/21/22 07:49 Active Medications: Current Medications Lactated Ringer's (Lr) 1,000 mls @ 80 mls/hr IVCONT .[id number] [facility] Last Admin: 12/21/22 07:32 Dose: 80 mls/hr Home Medications Medication Instructions Recorded Confirmed Last Taken Type albuterol sulfate 90 mcg/actuation 1 puff inhalation Q4-6H PRN 09/14/20 12/21/22 Unknown History aerosol inhaler Wheezing clobetasol 0.05 % topical cream 1 appl topical BID PRN Skin 09/14/20 12/21/22 08/01/22 History Irritation fexofenadine 180 mg tablet 180 mg PO DAILY 09/14/20 12/21/22 08/07/22 History etonogestrel 0.12 mg-ethinyl 1 vag ring vaginal Q4W 10/27/20 12/21/22 Unknown History estradiol 0.015 mg/24 hr vaginal ring (NuvaRing) celebrate bariatric mvi 1 tab PO DAILY 11/23/20 12/21/22 08/07/22 History psyllium husk 0.4 gram capsule 0.8 g PO TID 12/30/20 12/21/22 08/07/22 History (Metamucil) calcium citrate 1,000 mg tablet 1,000 mg PO DAILY 05/10/21 12/21/22 08/07/22 History trazodone 150 mg tablet 150 mg PO BEDTIME 05/10/22 12/21/22 08/07/22 History cyclobenzaprine 10 mg tablet 1 tab PO BEDTIME PRN muscle spasm 08/08/22 12/21/22 Unknown History fesoterodine 8 mg tablet,extended 1 tab PO DAILY 08/08/22 12/21/22 08/07/22 History release 24 hr (Toviaz) montelukast 10 mg tablet 1 tab PO BEDTIME 08/08/22 12/21/22 Unknown History Exam Exam Date and Time: December 21, 2022 0805 Height,Weight and Vital Signs: Height 5 ft 6 in Weight 75.296 kg Last Vital Signs Temp 97.3 F 12/21/22 07:45 Pulse 83 12/21/22 07:45 Resp 18 12/21/22 07:45 BP 127/86 12/21/22 07:45 Pulse Ox 100 12/21/22 07:45 O2 Del Method 12/21/22 07:45 Pertinent Lab Results Pertinent Lab Results: Laboratory Tests 12/14/22 12/14/22 12/14/22 14:45 14:45 14:45 WBC 7.0 RBC 4.21 Hgb 12.4 Hct 37.3 MCV 88.6 MCH 29.5 MCHC 33.2 RDW 12.4 Plt Count 251 MPV 9.7 Immature Gran % (Auto) 0.1 Neut % (Auto) 59.5 Lymph % (Auto) 33.2 [place] % (Auto) 6.6 Eos % (Auto) 0.3 Baso % (Auto) 0.3 Lymph # (Auto) 2.3 [place] # (Auto) 0.5 Eos # (Auto) 0.0 Baso # (Auto) 0.0 Abs Immat Gran (auto) 0.01 Absolute Neuts (auto) 4.1 Absolute Nucleated RBC 0.000 Nucleated RBC % (auto) 0.0 PT 11.0 INR 1.0 APTT 29.2 Sodium Potassium Chloride Carbon Dioxide Anion Gap BUN Creatinine Estim Creat Clear Calc Estimated GFR Random Glucose Estimat Average Glucose Hemoglobin A1c % Calcium Total Bilirubin AST ALT Alkaline Phosphatase Total Protein Albumin Vitamin A 49 Vitamin B1 33 H Urine Test COVID-19 ([facility]) COVID-19 Clin Com Blood Type Antibody Screen 12/14/22 12/14/22 12/14/22 14:45 14:45 14:45 WBC RBC Hgb Hct MCV MCH MCHC RDW Plt Count MPV Immature Gran % (Auto) Neut % (Auto) Lymph % (Auto) [place] % (Auto) Eos % (Auto) Baso % (Auto) Lymph # (Auto) [place] # (Auto) Eos # (Auto) Baso # (Auto) Abs Immat Gran (auto) Absolute Neuts (auto) Absolute Nucleated RBC Nucleated RBC % (auto) PT INR APTT Sodium 140 Potassium 4.5 Chloride 106 Carbon Dioxide 25 Anion Gap 14 BUN 15 Creatinine 0.78 Estim Creat Clear Calc 100.4 Estimated GFR > 60 Random Glucose 98 Estimat Average Glucose 97 Hemoglobin A1c % 5.0 Calcium 8.7 Total Bilirubin 0.3 AST 25 ALT 25 Alkaline Phosphatase 72 Total Protein 6.3 L Albumin 3.6 Vitamin A Vitamin B1 Urine Test COVID-19 ([facility]) [email or web address] Com Blood Type A Negative Antibody Screen NEGATIVE 12/20/22 12/21/22 14:05 07:00 WBC RBC Hgb Hct MCV MCH MCHC RDW Plt Count MPV Immature Gran % (Auto) Neut % (Auto) Lymph % (Auto) [place] % (Auto) Eos % (Auto) Baso % (Auto) Lymph # (Auto) [place] # (Auto) Eos # (Auto) Baso # (Auto) Abs Immat Gran (auto) Absolute Neuts (auto) Absolute Nucleated RBC Nucleated RBC % (auto) PT INR APTT Sodium Potassium Chloride Carbon Dioxide Anion Gap BUN Creatinine Estim Creat Clear Calc Estimated GFR Random Glucose Estimat Average Glucose Hemoglobin A1c % Calcium Total Bilirubin AST ALT Alkaline Phosphatase Total Protein Albumin Vitamin A Vitamin B1 Urine Test NEGATIVE COVID-19 ([facility]) Negative COVID-19 Clin Com See Note Blood Type Antibody Screen Airway Mallampati Class: III TM Dist: >3cm Neck ROM: Full Loose/Missing/Broken Teeth: Yes Heart: S1,S2 Lungs: b/l breath sounds Assessment and Plan Assessment Anesthesia Assessment: Anesthesia Plan Discussed and Chart Reviewed Final Anesthetic Review Family History of Problems with Anesthesia: No History of Problems with Anesthesia: No NPO: Yes ASA Class: II Final Preanesthetic Review: Meds/Allgs Chart Reviewed, Consent Obtained/Reviewed and Anes Risks/Benef Reviewed Patient Risk: Intermediate Procedure Risk: Intermediate Anesthetic Plan Anesthetic Plan: GA Disposition: Standard PACU
--- NOTE | 2022-12-21 09:47 | P.BOP_ITS ---
Brief Operative Note Date of Service: 12/21/22 Pre-op diagnosis: Excessive skin laxity in both upper arms and thighs due to massive weight loss Post-op diagnosis: same Procedure: PROCEDURE: Bilateral brachioplasty and thighplasty INDICATION: This a 37 year old female who underwent laparoscopic sleeve gastrectomy on 11/10/2020. She had an excellent result achieving a BMI of 26.8 kg/m2 with a total weight loss of 77lbs, or 31.1% of her TBWL. As a result, she has developed skin irritation and intetrigo in both upper arms and medial thighs. On exam she has extreme skin laxity due to massive weight loss and age with the upper arms 5 cm below the level of the triceps and friction between the?inner thighs. Bilateral brachioplasty and thighplasty was recommended.?Risks and complications were discussed with the patient including bleeding, infection, flap necrosis, asymmetry, dehiscence, seroma, VTE. The patient understood the risks and was in agreement to proceed with surgery. PROCEDURE: The incisions were appropriately marked at the preop area with the patient standing and laying down. After induction of general anesthesia a Lynne catheter and pneumatic compression devices were placed. The patient was prepped and draped in the usual sterile manner and the incisions were marked again and confirmed. In similar fashion both upper arms and thighs were also marked when the patient was standing. The upper arms were performed first. The skin was infiltrated with lidocaine and epinephrine. Skin was excised with the #15 blade. The anterior incision was made first. I did not commit to the posterior incision until dissection was completed and I could assess the appropriate location for the posterior incision to prevent excessive tension. Cautery was used to separate the skin from subcutaneous tissues. Careful attention was paid to make sure that the plain of excision was superficial as close to the skin as possible and superior to the fascia. The right upper arm skin was 25 cm x 6 cm and the left 25 cm x 7 cm. Skin was closed in two layers using interrupted 3.0 Monocryl sutures for the dermis and 4.0 subcuticular Monocryl suture for the skin. In a similar manner the thigh incisions were appropriately marked. The legs were flexed at the knees and abducted at the hip level.?The anterior incision was made first. I did not commit to the posterior incision until dissection was completed and I could assess the appropriate location for the posterior incision to prevent excessive tension. Cautery was used to separate the skin from subcutaneous tissues. Careful attention was paid to make sure that the plain of excision was superficial as close to the skin as possible and superior to the fascia. The right thigh skin was 38 cm x 9 cm and the left was 40 cm x 7.5 cm. Skin was closed in two layers using interrupted 3.0 Monocryl sutures for the dermis and 4.0 subcuticular Monocryl suture for the skin. The patient was extubated and was transferred in a stable condition at the recovery room. I was present and performed all steps of the procedure. There were no residents available to assist. Mr. Yunior Mario PA-C was the instructional assistant and Ms. Yun Walker the second. Murtaza Corona MD, PhD, FACS Surgeon: Callum Corona MD Anesthesia: GETA and local Was an Site Supervising Technical Operator used for this Procedure?: No Site Supervising Technical Operator: Yunior Mario Estimated blood loss (mL): 20 IV fluids (mL): 3,000 Urine output (mL): 400 Pathology: other (1) Left arm skin, 2) Right arm skin, 3) Left thigh skin, 4) Right thigh skin) Condition: stable Disposition: PACU
[2022-12-21] MEDS: HYDROmorphone HCl 0.5 MG/0.5 ML SYRINGE 0.25 MG IVPUSH (17:57)
--- NOTE | 2022-12-21 18:08 | PC.NURSE ---
CAREY JACOBS AT BEDSIDE TO EVALUATE PATIENT; DRESSINGS REMAIN C/D/I, PAIN TOLERABLE
--- NOTE | 2022-12-21 20:34 | PC.NURSE ---
1845 PATIENT OOB DRESSED, AMBULATED TO BATHROOM TO VOID REPORTED NAUSEA WITH MOVEMENT VOMITED <30 ML REPORTS NAUSEA RESOLVED AFTER VOMITING, DECLINED ANY ADDITIONAL ANTIEMETIC. PATIENT UPPER THIGH DRESSINGS NOTED TO HAVE SLID DOWN LOOSENED WITH PATIENT MOVEMENT. DRESSINGS BILATERALLY REINFORCED. OTHERWISE ALL DRESSINGS REMAIN C/D/I BILATERAL LEGS AND UPPER ARMS. PATIENT ABLE TO SELF-TRANSFER TO WHEELCHAIR NAUSEA RESOLVED.
--- NOTE | 2022-12-22 10:51 | P.F2F_ITS ---
Service Date Service Date: 12/22/22 Encounter Date of encounter: 12/21/22 Reasons for Services Signs and symptoms assessed: post op wound management Reason for fpc: postoperative assessment and/or care Homebound: Leaving the home is medically contraindicated at this time without the asist of a device and/or another person due th the listed conditions above and below. Reason homebound: unable to drive Certification: Based on the above findings, I certify that this patient is confined to the home and needs intermittent fpc care, physical therapy and/or speech therapy, or continues to need occupational therapy. The patient is under my ca re, and I have initiated the establishment of the plan of care. The patient will be followed by a physician who will periodically review the plan of care. Time Spent With Patient Time: Total time managing care of this patient today 25 minutes.
== END 2022-12-21 18:55 | disposition home or self-care (01) ==
PROVIDERS: Anesthesiology; Physician Assistant Surgical; PCP Internal Medicine; Visit Provider Surgery
PROC: (CPT 15836; principal; 2022-12-21 09:00)
PROC: (CPT 15836; 2022-12-21 09:00)
DX: L98.7 Excessive and redundant skin and subcutaneous tissue (principal); K91.2 Postsurgical malabsorption, not elsewhere classified; Z98.84 Bariatric surgery status; Z90.3 Acquired absence of stomach [part of]; L30.4 Erythema intertrigo; L30.9 Dermatitis, unspecified; E66.3 Overweight; Z68.26 Body mass index [BMI] 26.0-26.9, adult; K59.00 Constipation, unspecified; Z79.899 Other long term (current) drug therapy; Z98.890 Other specified postprocedural states; Z20.822 Contact with and (suspected) exposure to COVID-19
CPT/HCPCS: 15836; 15832; 36415; 80053; 81025; 83036; 84425; 84590; 85025; 85610; 85730; 86850; 86900; 86901; 87635; 88304; J0131; J0690; J1100; J1170; J2250; J2405; J3010; J3370

== ENCOUNTER → 2022-12-28 15:04 | Outpatient (BNVA) | payer OTHER, SELFPAY | PROVIDERS: PCP Internal Medicine; Referring Provider Internal Medicine; Visit Provider Physician Assistant Surgical | DX: Z13.89 Encounter for screening for other disorder (principal) ==

== ENCOUNTER → 2023-01-03 13:25 | Outpatient (BNVA) | payer OTHER, SELFPAY | PROVIDERS: PCP Internal Medicine; Visit Provider Physician Assistant Surgical | DX: Z48.89 Encounter for other specified surgical aftercare (principal); Z48.01 Encounter for change or removal of surgical wound dressing; E66.3 Overweight; Z68.26 Body mass index [BMI] 26.0-26.9, adult; Z98.84 Bariatric surgery status | CPT/HCPCS: 99212 ==

== ENCOUNTER → 2023-01-10 11:20 | Outpatient (BNVA) | payer OTHER, SELFPAY | PROVIDERS: PCP Internal Medicine; Visit Provider Physician Assistant Surgical | DX: E66.3 Overweight (principal); Z98.890 Other specified postprocedural states; Z98.84 Bariatric surgery status; Z68.26 Body mass index [BMI] 26.0-26.9, adult | CPT/HCPCS: 99212 ==

== ENCOUNTER → 2023-01-24 12:11 | Outpatient (BNVA) | payer OTHER, SELFPAY | PROVIDERS: PCP Internal Medicine; Visit Provider Physician Assistant Surgical | DX: E66.01 Morbid (severe) obesity due to excess calories (principal); K90.49 Malabsorption due to intolerance, not elsewhere classified; Z68.26 Body mass index [BMI] 26.0-26.9, adult; Z90.3 Acquired absence of stomach [part of]; Z98.890 Other specified postprocedural states | CPT/HCPCS: 99212 ==

== ENCOUNTER → 2023-02-15 13:32 | Outpatient (BNVA) | payer OTHER, SELFPAY | PROVIDERS: PCP Internal Medicine; Visit Provider Physician Assistant Surgical | DX: E66.3 Overweight (principal); Z98.890 Other specified postprocedural states; Z68.27 Body mass index [BMI] 27.0-27.9, adult | CPT/HCPCS: 99212 ==

== ENCOUNTER → 2023-03-22 14:02 | Outpatient (BNVA) | payer OTHER, SELFPAY | PROVIDERS: PCP Internal Medicine; Visit Provider Physician Assistant Surgical ==

== ENCOUNTER 2024-02-27 11:42 | Outpatient (AMB) | payer OTHER, SELFPAY ==
[2024-02-27 11:43] VITALS: BP 130/80; PULSE 78; O2SAT 98
--- NOTE | 2024-02-27 11:43 | AM.OFFWIN_ITS ---
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 Intake Note: pt is here for possible uti Patient Tobacco Use Status: Never used Tobacco Allergies grass Allergy (Severe, Uncoded 02/27/24 11:43) throat closure from cut grass shellfish Allergy (Severe, Uncoded 02/27/24 11:43) throat closure from steamed shellfish banana Allergy (Mild, Uncoded 02/27/24 11:43) Hives coffee deal Allergy (Mild, Uncoded 02/27/24 11:43) Hives dust/dustmites Allergy (Mild, Uncoded 02/27/24 11:43) Itching Medication List - Last Reconciled 02/27/24 by Abner Jung MD albuterol sulfate 90 mcg/actuation 1 puff inhalation Q4-6H PRN calcium citrate 1,000 mg PO DAILY [celebrate bariatric mvi 1 tab PO DAILY] cyclobenzaprine 1 tab PO BEDTIME PRN docusate sodium (Colace) 100 mg PO BID etonogestrel-ethinyl estradiol 0.12-0.015 mg/24 hr (NuvaRing) 1 vag ring vaginal Q4W fesoterodine ER (Toviaz) 1 tab PO DAILY fexofenadine 180 mg PO DAILY montelukast 1 tab PO BEDTIME psyllium husk (Metamucil) 0.8 grams PO TID trazodone 150 mg PO BEDTIME Do you need a note to return to daycare/school/sports/work: Yes HPI 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 for 7 days Patient was instructed to push fluids. [facility] Medical History Asthma BMI 29.0-29.9,adult Overweight (BMI 25.0-29.9) Constipation Hiatal hernia Intestinal malabsorption following gastrectomy Encephalomalacia on imaging study Urinary tract infection Body mass index (BMI) of 37.0-37.9 in adult Shortness of breath Preoperative examination Morbid obesity due to excess calories BMI 37.0-37.9, adult Dysphagia Eczema Obesity (BMI 30-39.9) OAB (overactive bladder) Insomnia Surgical History Hx of brain surgery History of repair of hiatal hernia S/P laparoscopic sleeve gastrectomy History of tooth extraction History of bladder surgery History of esophagogastroduodenoscopy (EGD) Family History Father HTN (hypertension) Mother HTN (hypertension) Brother No problems noted. Sister No problems noted. Sister No problems noted. Sister No problems noted. Daughter No problems noted. 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 at home: Yes (2 children, father will assist in the post-op period) Do you presently have visiting nurse or other home services: No Alcohol intake: never Patient Tobacco Use Status: Never used Tobacco service: No Current occupational status: employed Review of Systems Const All systems reviewed & are unremarkable except as noted in HPI and below Physical Exam Vital Signs: Last Vital Signs Pulse 78 02/27/24 11:43 BP 130/80 02/27/24 11:43 Pulse Ox 98 02/27/24 11:43 Oxygen Delivery Method Room Air 02/27/24 11:43 Const General: no acute distress Orientation/consciousness: patient oriented x3 Eyes General: appearance normal, both eyes and all related structures Resp Effort & Inspection: normal respiratory effort and able to speak in complete sentences Auscultation: clear to auscultation bilaterally GI Abdomen image: 2 1. Suprapubic pain with pressure Neuro General: patient oriented x3 Psych Mental Status: mental status grossly normal Results AMB Urinalysis, Automated 2 UA Leukoctes 125 Umm/uL Last Edit by Nathaniel Sharp CMA on 02/27/24 11:5 2 UA Nitrite Negative Last Edit by Nathaniel Sharp CMA on 02/27/24 11:52 UA Urobilinogen 0.2 mg/dL Last Edit by Nathaniel Sharp CMA on 02/27/24 11 :52 UA Protein 30 mg/dL Last Edit by Nathaniel Sharp CMA on 02/27/24 11:52 UA pH 6.0 Last Edit by Nathaniel Sharp CMA on 02/27/24 11:52 UA Blood 200 Padilla/uL Last Edit by Nathaniel Sharp CMA on 02/27/24 11:52 UA Specific [place] 1.015 Last Edit by Nathaniel Sharp CMA on 02/27/24 11:52 UA Ketone Negative Last Edit by Nathaniel Sharp CMA on 02/27/24 11:52 UA Bilirubin 0 mg/dL Last Edit by Nathaniel Sharp CMA on 02/27/24 11:52 UA Glucose 0 mg/dL Last Edit by Nathaniel Sharp CMA on 02/27/24 11:52 Results Reviewed Results Reviewed: Laboratory Last Values Urine pH (Auto) 6.0 02/27/24 11:51 Specific [place] (Auto) 1.015 02/27/24 11:51 Urine Protein (Auto) 30 mg/dL 02/27/24 11:51 Glucose (UA)(Auto) 0 mg/dL 02/27/24 11:51 Urine Ketones (Auto) Negative 02/27/24 11:51 Urine Blood (Auto) 200 Padilla/uL 02/27/24 11:51 Urine Nitrite (Auto) Negative 02/27/24 11:51 Urine Bilirubin (Auto) 0 mg/dL 02/27/24 11:51 Urine Urobilinogen (Auto) 0.2 mg/dL 02/27/24 11:51 Leukocyte Esterase (Auto) 125 Umm/uL 02/27/24 11:51 Assessment & Plan Assessment & Plan (1) Acute cystitis: Code(s): N30.00 - Acute cystitis without hematuria Qualifiers: Hematuria presence: with hematuria Qualified Code(s): N30.01 - Acute cystitis with hematuria Plan Patient is a 38-year-old female came in today to be evaluated for possible urine infection Symptoms started yesterday with frequency and this morning she woke up with burning sensation when she be She is also having urgency There is no back pain no fever no chills no nausea vomiting There is some discomfort suprapubic On examination she is tender suprapubic with palpation Urine shows signs of bladder infection with positive leuk esterase protein and 3+ blood Urine sent for culture I am treating her with Macrobid 100 mg b.i.d. for 7 days Patient was instructed to push fluids. Orders: Orders 2 Urine Culture Today Abner Jung MD N30.00 - Acute cystitis without hematuria AMB Urinalysis Automated Today Melly Reeves NP Z13.9 - Encounter for screening, unspecified Medications: New 2 nitrofurantoin monohyd/m-cryst 100 mg (Macrobid) must administer with a meal/food 100 mg PO Q12H 14 caps 0RF 7 days Abner Jung MD Coding Level of Care Code New Pt Level 3 (33060) Diagnoses Acute cystitis with hematuria N30.01 Hematuria presence: with hematuria
== END 2024-02-27 12:09 | disposition home or self-care (01) ==
PROVIDERS: PCP Internal Medicine; Visit Provider Internal Medicine
DX: Z13.9 Encounter for screening, unspecified (principal); N30.01 Acute cystitis with hematuria
CPT/HCPCS: 81003; 99203

== ENCOUNTER 2024-02-27 11:58 | Outpatient (REF) | payer OTHER, SELFPAY | END 2024-02-27 11:59 | disposition home or self-care (01) | LOC: HO.LAB 11:58 | PROVIDERS: Visit Provider Internal Medicine | DX: N30.00 Acute cystitis without hematuria (principal) | CPT/HCPCS: 87086 ==

== ENCOUNTER 2024-03-14 11:53 | Outpatient (AMB) | payer OTHER, SELFPAY ==
--- NOTE | 2024-03-14 12:02 | MHC.OFFWIV ---
Intake Vital Signs 03/14/24 12:04 Height 5 ft 6 in Weight 197 lb 2 oz BMI 31.8 BP 130/88 Blood Pressure Location Rt brachial Position Sitting Pulse 93 Pulse Source Pulse Oximeter Temp 97.7 F Temp Source Oral Pulse Oximetry (%) 98 Oxygen Delivery Method Room Air Intake Visit Reasons: EP ?UTI Intake Note: Pt presents to the office today for c/o UTI symptoms that started yesterday. She states she has frequency, pressure, and painful urination. Patient Tobacco Use Status: Never used Tobacco Allergies grass Allergy (Severe, Uncoded 03/14/24 12:06) throat closure from cut grass shellfish Allergy (Severe, Uncoded 03/14/24 12:06) throat closure from steamed shellfish banana Allergy (Mild, Uncoded 03/14/24 12:06) Hives coffee deal Allergy (Mild, Uncoded 03/14/24 12:06) Hives dust/dustmites Allergy (Mild, Uncoded 03/14/24 12:06) Itching HPI EP ?UTI HPI Details 38 year old female patient presents today with c/o UTI symptoms x2 days. Reports urinary frequency, burning, pressure. Denies any fever, chills, or flank pain. She was seen here about 3 weeks ago for UTI and started on Nitrofurantoin. She states she did improve following rx, however symptoms recently recurred. States she has been more sexually active lately and this could be contributing. [facility] Medical History Asthma BMI 29.0-29.9,adult Overweight (BMI 25.0-29.9) Constipation Hiatal hernia Intestinal malabsorption following gastrectomy Encephalomalacia on imaging study Urinary tract infection Body mass index (BMI) of 37.0-37.9 in adult Shortness of breath Preoperative examination Morbid obesity due to excess calories BMI 37.0-37.9, adult Dysphagia Eczema Obesity (BMI 30-39.9) OAB (overactive bladder) Insomnia Surgical History Hx of brain surgery History of repair of hiatal hernia S/P laparoscopic sleeve gastrectomy History of tooth extraction History of bladder surgery History of esophagogastroduodenoscopy (EGD) Family History Father HTN (hypertension) Mother HTN (hypertension) Brother No problems noted. Sister No problems noted. Sister No problems noted. Sister No problems noted. Daughter No problems noted. 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 at home: Yes (2 children, father will assist in the post-op period) Do you presently have visiting nurse or other home services: No Alcohol intake: never Patient Tobacco Use Status: Never used Tobacco service: No Current occupational status: employed Review of Systems Const All systems reviewed & are unremarkable except as noted in HPI and below Physical Exam Vital Signs: Last Vital Signs Temp 97.7 F 03/14/24 12:04 Pulse 93 03/14/24 12:04 BP 130/88 03/14/24 12:04 Pulse Ox 98 03/14/24 12:04 Oxygen Delivery Method Room Air 03/14/24 12:04 BMI result Body Mass Index 31.8 Const General: cooperative, healthy appearing and no acute distress Resp Effort & Inspection: normal respiratory effort General: Yes bladder normal to palpation and Yes no CVA tenderness Bimanual exam- vagina & uterus: bladder normal to palpation Back/Spine/Pelvis Back: no CVA tenderness Skin General skin exam: no rashes or lesions noted Extrem General: Yes no clubbing, cyanosis or edema Psych Appearance: grossly normal Mental Status: mental status grossly normal Speech and movement: Normal speech and movement present Results AMB Urinalysis, Automated UA Leukoctes 500 Umm/uL Last Edit by Marii Wright CMA on 03/14/24 12:18 UA Nitrite Positive Last Edit by Marii Wright CMA on 03/14/24 12:18 UA Urobilinogen 4 mg/dL Last Edit by Marii Wright CMA on 03/14/24 12:18 UA Protein 0 mg/dL Last Edit by Marii Wright CMA on 03/14/24 12:18 UA pH 5.0 Last Edit by Marii Wright CMA on 03/14/24 12:18 UA Blood 200 Padilla/uL Last Edit by Marii Wright CMA on 03/14/24 12:18 UA Specific [place] 1.005 Last Edit by Marii Wright CMA on 03/14/24 12:18 UA Ketone Positive Last Edit by Marii Wright CMA on 03/14/24 12:18 UA Bilirubin 4 mg/dL Last Edit by Marii Wright CMA on 03/14/24 12:18 UA Glucose 100 mg/dL Last Edit by Marii Wright CMA on 03/14/24 12:18 Results Reviewed Results Reviewed: Laboratory Last Values Urine pH (Auto) 5.0 03/14/24 12:17 Specific [place] (Auto) 1.005 03/14/24 12:17 Urine Protein (Auto) 0 mg/dL 03/14/24 12:17 Glucose (UA)(Auto) 100 mg/dL 03/14/24 12:17 Urine Ketones (Auto) Positive 03/14/24 12:17 Urine Blood (Auto) 200 Padilla/uL 03/14/24 12:17 Urine Nitrite (Auto) Positive 03/14/24 12:17 Urine Bilirubin (Auto) 4 mg/dL 03/14/24 12:17 Urine Urobilinogen (Auto) 4 mg/dL 03/14/24 12:17 Leukocyte Esterase (Auto) 500 Umm/uL 03/14/24 12:17 Assessment & Plan Assessment & Plan (1) Urinary tract infection: Code(s): N39.0 - Urinary tract infection, site not specified Qualifiers: Urinary tract infection type: acute cystitis Hematuria presence: with hematuria Qualified Code(s): N30.01 - Acute cystitis with hematuria Plan: Patient has UTI symptoms with urine dip consistent with this. She was recently on Nitrofurantoin. I will start her on Bactrim and also Phenazopyridine for symptom management. She can also take Tylenol prn. We reviewed indications, use, possible s/e of medications. If she has recurrence of UTI again following treatment, urine culture should be sent. Discussed this with patient today. She has been more sexually active lately so we reviewed jovany hygiene and importance of voiding before and after intercourse if possible. Recommended increased hydration. Patient will return to clinic if she does not improve with treatment. Orders: Orders AMB Urinalysis Automated Today Z13.9 - Encounter for screening, unspecified Medications: New phenazopyridine 200 mg PO TID PRN 6 tabs 0RF pain N30.01 - Acute cystitis with hematuria sulfamethoxazole-trimethoprim 800-160 mg 1 tab PO BID 5 days 10 tabs 0RF N30.01 - Acute cystitis with hematuria Coding Level of Care Code Est Pt Level 4 (82328) Diagnoses Acute cystitis with hematuria N30.01 Urinary tract infection type: acute cystitis Hematuria presence: with hematuria
[2024-03-14 12:04] VITALS: BP 130/88; PULSE 93; TEMP 36.5; O2SAT 98; BMI 31.8
== END 2024-03-14 12:52 | disposition home or self-care (01) ==
PROVIDERS: PCP Internal Medicine; Visit Provider Nurse Practitioner Family
DX: N30.01 Acute cystitis with hematuria (principal); Z13.9 Encounter for screening, unspecified
CPT/HCPCS: 81003; 99214

== ENCOUNTER 2024-04-16 08:20 | Outpatient (AMB) | payer OTHER, SELFPAY ==
[2024-04-16 08:24] VITALS: BP 130/80; PULSE 76; TEMP 36.6; O2SAT 98; BMI 31.8
--- NOTE | 2024-04-16 08:24 | MHC.OFFWIV ---
Intake Vital Signs 04/16/24 08:24 Height 5 ft 6 in Weight 197 lb BMI 31.8 BP 130/80 Blood Pressure Location Rt brachial Position Sitting Pulse 76 Pulse Source Pulse Oximeter Temp 97.9 F Temp Source Oral Pulse Oximetry (%) 98 Intake Visit Reasons: EP ?UTI Intake Note: pt is here for possible uti, requesting urine culture to be sent out Patient Tobacco Use Status: Never used Tobacco Allergies grass Allergy (Severe, Uncoded 04/16/24 08:35) throat closure from cut grass shellfish Allergy (Severe, Uncoded 04/16/24 08:35) throat closure from steamed shellfish banana Allergy (Mild, Uncoded 04/16/24 08:35) Hives coffee deal Allergy (Mild, Uncoded 04/16/24 08:35) Hives dust/dustmites Allergy (Mild, Uncoded 04/16/24 08:35) Itching Do you need a note to return to daycare/school/sports/work: No HPI HPI Comments History of Present Illness Details 38-year-old female presents today complaining of dysuria urgency frequency times the last 2 days. She is currently taking azo for discomfort. She states this is her 3rd UTI in the last 3 months. The last 2 were treated with Bactrim and Macrobid. [facility] Medical History Asthma BMI 29.0-29.9,adult Overweight (BMI 25.0-29.9) Constipation Hiatal hernia Intestinal malabsorption following gastrectomy Encephalomalacia on imaging study Urinary tract infection Body mass index (BMI) of 37.0-37.9 in adult Shortness of breath Preoperative examination Morbid obesity due to excess calories BMI 37.0-37.9, adult Dysphagia Eczema Obesity (BMI 30-39.9) OAB (overactive bladder) Insomnia Surgical History Hx of brain surgery History of repair of hiatal hernia S/P laparoscopic sleeve gastrectomy History of tooth extraction History of bladder surgery History of esophagogastroduodenoscopy (EGD) Family History Father HTN (hypertension) Mother HTN (hypertension) Brother No problems noted. Sister No problems noted. Sister No problems noted. Sister No problems noted. Daughter No problems noted. 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 home: Yes (2 children, father will assist in the post-op period) Do you presently have visiting nurse or other home services: No Alcohol intake: never Patient Tobacco Use Status: Never used Tobacco service: No Current occupational status: employed Review of Systems Const All systems reviewed & are unremarkable except as noted in HPI and below GI Reports no additional complaints Reports dysuria and Reports urinary urgency Physical Exam Vital Signs: Last Vital Signs Temp 97.9 F 04/16/24 08:24 Pulse 76 04/16/24 08:24 BP 130/80 04/16/24 08:24 Pulse Ox 98 04/16/24 08:24 BMI result Body Mass Index 31.8 Const General: healthy appearing and no acute distress Results AMB Urinalysis, Automated UA Leukoctes 125 Umm/uL Last Edit by Nathaniel Sharp CMA on 04/16/24 08:44 UA Nitrite Positive Last Edit by Nathaniel Sharp CMA on 04/16/24 08:44 UA Urobilinogen 1 mg/dL Last Edit by Nathaniel Sharp CMA on 04/16/24 08:44 UA Protein 0 mg/dL Last Edit by Nathaniel Sharp CMA on 04/16/24 08:44 UA pH 6.5 Last Edit by Nathaniel Sharp CMA on 04/16/24 08:44 UA Blood 200 Padilla/uL Last Edit by Nathaniel Sharp CMA on 04/16/24 08:44 UA Specific [place] 1.015 Last Edit by Nathaniel Sharp CMA on 04/16/24 08:44 UA Ketone Negative Last Edit by Nathaniel Sharp CMA on 04/16/24 08:44 UA Bilirubin 1 mg/dL Last Edit by Nathaniel Sharp CMA on 04/16/24 08:44 UA Glucose 0 mg/dL Last Edit by Nathaniel Sharp CMA on 04/16/24 08:44 Results Reviewed Results Reviewed: Results of the urinalysis was reviewed with the patient. Discussion of sending her urine out for culture. Assessment & Plan Assessment & Plan (1) Acute cystitis: Code(s): N30.00 - Acute cystitis without hematuria Qualifiers: Hematuria presence: with hematuria Qualified Code(s): N30.01 - Acute cystitis with hematuria Plan: Cephalexin is ordered for broad-spectrum coverage. The urine was sent out for culture Plan See plan Orders: Orders AMB Urinalysis Automated Today Z13.9 - Encounter for screening, unspecified Urine Culture Today N30.01 - Acute cystitis with hematuria Medications: New cephalexin 500 mg PO BID 7 days 14 caps 0RF Coding Level of Care Code Est Pt Level 3 (92563) Diagnoses Acute cystitis with hematuria N30.01 Hematuria presence: with hematuria
== END 2024-04-16 09:18 | disposition home or self-care (01) ==
PROVIDERS: PCP Internal Medicine; Visit Provider Physician Assistant Medical
DX: N30.01 Acute cystitis with hematuria (principal); Z13.9 Encounter for screening, unspecified
CPT/HCPCS: 81003; 99213

== ENCOUNTER 2024-04-16 09:03 | Outpatient (REF) | payer OTHER, SELFPAY | END 2024-04-16 09:04 | disposition home or self-care (01) | LOC: HO.LAB 09:03 | PROVIDERS: Visit Provider Physician Assistant Medical | DX: N30.01 Acute cystitis with hematuria (principal) | CPT/HCPCS: 87086 ==

== ENCOUNTER 2024-05-21 14:37 | Outpatient (AMB) | payer OTHER, SELFPAY ==
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
[2024-05-21 14:49] VITALS: BMI 32.7
== END 2024-05-21 15:45 | disposition home or self-care (01) ==
PROVIDERS: PCP Internal Medicine; Visit Provider Physician Assistant Surgical
DX: E66.9 Obesity, unspecified (principal); Z68.32 Body mass index [BMI] 32.0-32.9, adult; Z90.3 Acquired absence of stomach [part of]; Z98.84 Bariatric surgery status
CPT/HCPCS: 99214; G2211

== ENCOUNTER → 2024-05-21 14:37 | Outpatient (BNVA) | payer OTHER, SELFPAY | PROVIDERS: PCP Internal Medicine; Visit Provider Physician Assistant Surgical | DX: E66.9 Obesity, unspecified (principal); Z68.32 Body mass index [BMI] 32.0-32.9, adult; Z98.84 Bariatric surgery status | CPT/HCPCS: 99212 ==

== ENCOUNTER 2024-06-11 09:05 | Outpatient (REF) | payer OTHER, SELFPAY ==
[2024-06-11 09:27] LABS: MANUAL DIFF FLAG NO
[2024-06-11 09:52] LABS: Basophils Percent Auto 0.7 % (0-2); Eosinophils Absolute Auto 0.1 X10*3/uL (0.0-0.4); Eosinophils Percent Auto 1.4 % (0-4); Hemoglobin 12.6 g/dl (12.0-16.0); Imm Gran Abs Auto 0.02 X10*3/uL (0.00-0.03); Imm Gran Pct Auto 0.4 % (0.0-0.4); Lymphocytes Absolute Auto 1.9 X10*3/uL (1.2-4.9); Mean Corpuscular HGB Conc 33.2 g/dl (31.0-35.0); Mean Corpuscular Hemoglobin 30.6 pg (27.0-33.0); Mean Corpuscular Volume 92.2 fL (80.0-98.0); Mean Platelet Volume 10.2 fL (9.4-12.3); Monocytes Absolute Auto 0.4 X10*3/uL (0.1-1.2); Monocytes Percent Auto 7.6 % (2-11); Neutrophils Absolute Auto 3.2 x10*3/uL (2.0-8.3); Neutrophils Percent Auto 55.9 % (45-73); Platelet Count 236 X10*3/uL (160-400); Red Blood Count 4.12 X10*6/uL (4.20-5.50); Red Cell Distribution Width 13.4 % (11.0-16.0); White Blood Count 5.6 X10*3/uL (4.8-10.8)
[2024-06-11 10:21] LABS: Alanine Aminotransferase 22 U/L (0-31); Albumin Level 3.6 g/dL (3.5-5.0); Alkaline Phosphatase 56 U/L (39-117); Anion Gap 11 (12-20); Aspartate Amino Transferase 26 U/L (5-31); Bilirubin Total 0.4 mg/dL (0.0-1.0); Blood Urea Nitrogen 11 mg/dL (9-16); C Reactive Protein 0.92 mg/dL (< or = 0.50); Calcium 8.8 mg/dL (8.4-10.2); Carbon Dioxide 24 mmol/L (22-29); Chloride 107 mmol/L (96-108); Cholesterol 191 mg/dL (<200); Estimated Glomerular Filt Rate > 60; Glucose Random 76 mg/dL (60-115); HDL Cholesterol 96 mg/dL (>40); Iron 144 mcg/dL (30-160); LDL Cholesterol Calculated 84 mg/dL (<100); Percent Iron Saturation 34 % (15-50); Potassium 3.7 mmol/L (3.3-5.1); Sodium 138 mmol/L (135-145); Total Iron Binding Capacity 422 mcg/dL (228-428); Total Protein 6.9 g/dL (6.5-8.0); Triglycerides 56 mg/dL (<150); Unsaturated Iron Binding 278 ug/dL
[2024-06-11 10:47] LABS: Ferritin 16 ng/mL (10-250); Insulin 3 uU/mL (2-29); TSH reflex Free T4 4.18 uIU/mL (0.32-4.0); Vitamin D 25-OH Total 79.1 ng/mL (>30)
[2024-06-11 11:04] LABS: Estimated Average Glucose 91 mg/dL; Hemoglobin A1c % 4.8 % (<6.0)
[2024-06-11 11:18] LABS: Folate 12.6 ng/mL (> or = 4.0); Vitamin B12 840 pg/mL (200-900)
[2024-06-11 11:44] LABS: Free T4 (Free Thyroxine) 0.88 ng/dL (0.71-1.85)
[2024-06-14 05:19] LABS: Zinc 68 mcg/dL (60-130)
[2024-06-16 18:13] LABS: Vitamin A 70 mcg/dL (38-98)
[2024-06-19 13:49] LABS: Vitamin B1 22 nmol/L (8-30)
== END 2024-06-11 09:06 | disposition home or self-care (01) ==
LOC: HO.LAB 09:05
PROVIDERS: PCP Internal Medicine; Visit Provider Physician Assistant Surgical
DX: Z98.890 Other specified postprocedural states (principal)
CPT/HCPCS: 36415; 80053; 80061; 82306; 82607; 82728; 82746; 83036; 83525; 83540; 84425; 84439; 84443; 84590; 84630; 85025; 86140

== ENCOUNTER 2024-09-29 12:38 | Outpatient (AMB) | payer OTHER, SELFPAY ==
--- NOTE | 2024-09-29 12:37 | A.OFFVIS_ITS ---
VS Expanded 09/29/24 12:42 Height 5 ft 6 in Weight 213 lb BMI 34.4 Intake Visit Reasons: (TV) PO LSG 11/10/21 Allergies grass Allergy (Severe, Uncoded 05/21/24 14:45) throat closure from cut grass shellfish Allergy (Severe, Uncoded 05/21/24 14:45) throat closure from steamed shellfish banana Allergy (Mild, Uncoded 05/21/24 14:45) Hives coffee deal Allergy (Mild, Uncoded 05/21/24 14:45) Hives dust/dustmites Allergy (Mild, Uncoded 05/21/24 14:45) Itching HPI Comments Details: This?is a?39?yo female who is s/p LSG 11/10/2021. Presents for 2 year 11 month post op visit. Weight at last visit on 05/21/2024 was 202.8 pounds with a BMI of 32.7, weight today is 213 pounds, representing a 10.2 pound weight loss with a BMI today of 34.4.? No complaints of nausea, emesis, abdominal pain or reflux, or constipation. Pt has been able to start working out harder. Had cortisone shot for foot pain. She reports she was at 216 lbs 3 weeks ago. Present meal plan includes: 2 Pure protein bars 1 Ryse shake with 25g protein 1 meal 4f/4f OR 1 ZP bar 2 shakes 25g each 1 meal 4f/4f started incorporating overnight oats with lisa seeds, flax seeds, nuts, protein powder with almond milk for breakfast- helps keep her full until lunch, prevents her from snacking. reports this has about 20g protein and max 250 calories protein bar x 2 meal with protein/veg Exercise routine includes: non-impact cardio, getting HR up per Fitbit following some low impact instagram cardio workouts finished PT foot hardware is causing pain, considering surgery to remove PFSH Medical History Asthma BMI 29.0-29.9,adult Overweight (BMI 25.0-29.9) Constipation Hiatal hernia Intestinal malabsorption following gastrectomy Encephalomalacia on imaging study Urinary tract infection Body mass index (BMI) of 37.0-37.9 in adult Shortness of breath Preoperative examination Morbid obesity due to excess calories BMI 37.0-37.9, adult Dysphagia Eczema Obesity (BMI 30-39.9) OAB (overactive bladder) Insomnia Surgical History Hx of brain surgery History of repair of hiatal hernia S/P laparoscopic sleeve gastrectomy History of tooth extraction History of bladder surgery History of esophagogastroduodenoscopy (EGD) Family History Father HTN (hypertension) Mother HTN (hypertension) Brother No problems noted. Sister No problems noted. Sister No problems noted. Sister No problems noted. Daughter No problems noted. Daughter Brain tumor Seizure disorder Social History Are you a primary anesthesiologist and critical care to a significant other at home: Yes (2 children, father will assist in the post-op period) Do you presently have visiting nurse or other home services: No Alcohol intake: never Patient Tobacco Use Status: Never used Tobacco service: No Current occupational status: employed Physical Exam Vital Signs: BMI result Body Mass Index 34.4 Telehealth Telehealth Telehealth Platform: Telephone Location of provider rendering services: practice address Location of patient: address on file Patient Identification confirmed using: Name, : Yes Telehealth method: voice only Patient verbally consented to treatment: Yes Patient verbally consented to billing insurance company: Yes Patient informed of any privacy concerns related to visit: Yes Minutes spent on Phone/Video with Pt.: 16 Assessment & Plan Assessment & Plan (1) S/P laparoscopic sleeve gastrectomy: Comment: 10/2020 Code(s): Z98.84 - Bariatric surgery status Category: Surgical (2) Obesity (BMI 30-39.9): Code(s): E66.9 - Obesity, unspecified Category: Medical (3) S/P thighplasty: Code(s): Z98.890 - Other specified postprocedural states Category: Surgical (4) S/P brachioplasty: Code(s): Z98.890 - Other specified postprocedural states Category: Surgical (5) S/P panniculectomy: Code(s): Z98.890 - Other specified postprocedural states Category: Surgical Plan Labs reviewed, TSH being trended by PCP. Pt will continue on current meal plan, feels that she has seen progress with it, getting adequate protein. Doing as much exercise as she comfortably can. RTC 3 months per pt preference. I spent a total of 30 minutes reviewing/updating records, examining the patient and counseling the patient on weight management as detailed above.
[2024-09-29 12:42] VITALS: BMI 34.4
== END 2024-09-29 12:52 | disposition home or self-care (01) ==
LOC: HO.HBS 12:38
PROVIDERS: PCP Internal Medicine; Visit Provider Physician Assistant Surgical
DX: E66.9 Obesity, unspecified (principal); E66.811 Obesity, class 1; Z68.34 Body mass index [BMI] 34.0-34.9, adult; Z98.84 Bariatric surgery status
CPT/HCPCS: 99214; G2211

== ENCOUNTER 2024-10-30 14:13 | Outpatient (AMB) | payer OTHER, SELFPAY ==
--- NOTE | 2024-10-30 14:45 | AM.OFFWIN_ITS ---
Intake Vital Signs 10/30/24 14:46 Weight 212 lb BP 124/80 Blood Pressure Location Lt brachial Position Sitting Pulse 84 Pulse Source Pulse Oximeter Temp 97.7 F Temp Source Oral Pulse Oximetry (%) 96 Oxygen Delivery Method Room Air Intake Visit Reasons: EP cough Intake Note: Patient here for cough, unable to take a full breathe without pain and has been present for 11 days now. Patient Tobacco Use Status: Never used Tobacco Allergies grass Allergy (Severe, Uncoded 10/30/24 14:47) throat closure from cut grass shellfish Allergy (Severe, Uncoded 10/30/24 14:47) throat closure from steamed shellfish banana Allergy (Mild, Uncoded 10/30/24 14:47) Hives coffee deal Allergy (Mild, Uncoded 10/30/24 14:47) Hives dust/dustmites Allergy (Mild, Uncoded 10/30/24 14:47) Itching Do you need a note to return to daycare/school/sports/work: Yes HPI HPI Comments History of Present Illness Details History The patient is a 39-year-old female presenting with a persistent cough and chest pain. The symptoms began 11 days ago following the onset of a cold. She reports experiencing chest pain upon taking deep breaths and states that the pain is significant. The cough is exacerbated by lying down, sitting up, attempting to yell, or laugh. She denies having fever, ear pain, or sinus pain but notes fatigue. The cough is non-productive, and despite using an albuterol inhaler, there has been no relief from coughing fits. No appetite changes were noted, and she has no history of asthma or Chronic Obstructive Pulmonary Disease (COPD). The patient has previously self-treated with nypt-fht-kihlbgi medications without significant improvement. She denies sick contacts. She has tested negative for Covid at home. Physical Exam General: Cooperative, healthy appearing, comfortable and no acute distress Orientation/consciousness: Patient oriented x3 Limitations: No limitations Head: Normal to inspection Ears: Hearing grossly normal bilaterally, external ears normal and TM's normal bilaterally Nose: Normal external nose present, Normal nares present and No nasal discharge present Face and sinus: Normal facial exam and Yes sinuses nontender Mouth: Normal oral and palatal mucosa present and moist mucous membranes Throat: Yes tonsils normal, Yes uvula midline. Posterior oropharynx erythema Eyes: Appearance normal, both eyes and all related structures Neck: Normal visual inspection Respiratory: Clear to auscultation bilaterally. Normal respiratory effort, able to speak in complete sentences, Actively coughing, no respiratory distress, not tachypneic, no tripod positioning and no use of accessory muscles Cardiovascular: Regular rate and rhythm. Normal S1 and S2 Skin: No rashes or lesions noted Neuro: Patient oriented x3 Extremities: Normal to inspection and Yes no clubbing, cyanosis or edema PFSH Medical History Asthma BMI 29.0-29.9,adult Overweight (BMI 25.0-29.9) Constipation Hiatal hernia Intestinal malabsorption following gastrectomy Encephalomalacia on imaging study Urinary tract infection Body mass index (BMI) of 37.0-37.9 in adult Shortness of breath Preoperative examination Morbid obesity due to excess calories BMI 37.0-37.9, adult Dysphagia Eczema Obesity (BMI 30-39.9) OAB (overactive bladder) Insomnia Surgical History Hx of brain surgery History of repair of hiatal hernia S/P laparoscopic sleeve gastrectomy History of tooth extraction History of bladder surgery History of esophagogastroduodenoscopy (EGD) Family History Father HTN (hypertension) Mother HTN (hypertension) Brother No problems noted. Sister No problems noted. Sister No problems noted. Sister No problems noted. Daughter No problems noted. 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: Yes (2 children, father will assist in the post-op period) Do you presently have visiting nurse or other home services: No Alcohol intake: never Patient Tobacco Use Status: Never used Tobacco service: No Current occupational status: employed Review of Systems Const All systems reviewed & are unremarkable except as noted in HPI and below Physical Exam Vital Signs: Last Vital Signs Temp 97.7 F 10/30/24 14:46 Pulse 84 10/30/24 14:46 BP 124/80 10/30/24 14:46 Pulse Ox 96 12/19/24 14:46 Oxygen Delivery Method Room Air 12/19/24 14:46 Assessment & Plan Assessment & Plan (1) Atypical pneumonia: Code(s): J18.9 - Pneumonia, unspecified organism Plan: - Conduct testing for Influenza, COVID-19, and Respiratory Syncytial Virus RSV to rule out viral infections. - Prescribe Azithromycin Z-Cyrus to address atypical pneumonia and provide anti- inflammatory benefits. - Recommend untm-fcb-ovwhzbk decongestants to manage nasal congestion. - Prescribe Tessalon pearls 200 mg to assist in managing cough symptoms and improve breathing. - Manage the patient?s cough conservatively and monitor for any changes or exacerbations. - Recommendation to begin the antibiotic treatment regimen immediately to alleviate symptoms and prevent further deterioration. Patient was informed and verbally consented to the use of an ambient scribe for clinic note documentation during this visit Medications: New azithromycin For 250 mg dose pack: take 500 mg today (day 1), then 250 mg for 4 days (days 2-5) PO 6 tabs 0RF benzonatate 200 mg PO TID PRN 14 caps 0RF cough Coding Level of Care Code Est Pt Level 3 (63359) Diagnoses Atypical pneumonia J18.9
[2024-10-30 14:46] VITALS: BP 124/80; PULSE 84; TEMP 36.5; O2SAT 96
== END 2024-10-30 15:38 | disposition home or self-care (01) ==
PROVIDERS: PCP Internal Medicine; Visit Provider Physician Assistant
DX: J18.9 Pneumonia, unspecified organism (principal)

== ENCOUNTER 2024-10-30 14:13 | Outpatient (REF) | payer OTHER, SELFPAY ==
[2024-10-31 14:35] LABS: Influenza A PCR NEGATIVE (Negative); Influenza B PCR NEGATIVE (Negative); Resp Syncy Virus RNA Qual PCR POSITIVE (Negative); SARS COV2 PCR INHOUSE NEGATIVE (Negative)
== END 2024-10-30 14:14 | disposition home or self-care (01) ==
LOC: HO.LNP 14:13
PROVIDERS: PCP Internal Medicine; Visit Provider Physician Assistant
DX: J18.9 Pneumonia, unspecified organism (principal); J06.9 Acute upper respiratory infection, unspecified
CPT/HCPCS: 0241U; 99212

== ENCOUNTER 2024-10-31 13:26 | Outpatient (REF) | payer OTHER, SELFPAY | END 2024-10-31 13:27 | disposition home or self-care (01) | LOC: HO.LAB 13:26 | PROVIDERS: Visit Provider Physician Assistant | DX: Z13.89 Encounter for screening for other disorder (principal) ==

== ENCOUNTER 2024-11-17 12:45 | Outpatient (AMB) | payer OTHER, SELFPAY ==
--- NOTE | 2024-11-17 14:31 | AM.OFFWIN_ITS ---
Intake Vital Signs 11/17/24 14:35 Weight 213 lb BP 124/80 Blood Pressure Location Rt brachial Position Sitting Pulse 92 Pulse Source Pulse Oximeter Temp 98 F Temp Source Oral Pulse Oximetry (%) 98 Oxygen Delivery Method Room Air Intake Visit Reasons: EP Nausea since julieta palmer (car [phone]) Intake Note: Patient here for nausea that has been going on since before 11/04. Patient Tobacco Use Status: Never used Tobacco Allergies grass Allergy (Severe, Uncoded 11/17/24 14:49) throat closure from cut grass shellfish Allergy (Severe, Uncoded 11/17/24 14:49) throat closure from steamed shellfish banana Allergy (Mild, Uncoded 11/17/24 14:49) Hives coffee deal Allergy (Mild, Uncoded 11/17/24 14:49) Hives dust/dustmites Allergy (Mild, Uncoded 11/17/24 14:49) Itching Medication List - Last Reconciled 11/17/24 by Deanna Jamison PA-C albuterol sulfate 90 mcg/actuation 1 puff inhalation Q4-6H PRN benzonatate 200 mg PO TID PRN calcium citrate 1,000 mg PO DAILY [celebrate bariatric mvi 1 tab PO DAILY] cyclobenzaprine 1 tab PO BEDTIME PRN docusate sodium (Colace) 100 mg PO BID etonogestrel-ethinyl estradiol 0.12-0.015 mg/24 hr (NuvaRing) 1 vag ring vaginal Q4W fesoterodine ER (Toviaz) 1 tab PO DAILY fexofenadine 180 mg PO DAILY trazodone 150 mg PO BEDTIME Do you need a note to return to daycare/school/sports/work: Yes HPI HPI Comments History of Present Illness Details The patient is a 39-year-old female presenting with nausea and general malaise. She reports not feeling well since November 04, initially diagnosed with RSV, an assessment she received during a previous visit. Although original symptoms of nasal congestion, runny nose, cough, and fever have subsided, persistent symptoms include body aches, weakness, dizziness, and nausea. The nausea, accompanied by a sensation of throat fullness, has persisted for approximately three weeks, initially beginning before her first visit. She reports a significant decrease in dietary intake, consuming roughly one protein bar per day due to worsening nausea when eating. Hydration has been challenging, although she can tolerate beth serena and some electrolyte solutions. 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 The patient underwent a sleeve gastrectomy in [address] Ayala at [place] without subsequent complications. She has not experienced nausea related to her surgery until now and has not had her sleeve evaluated recently. COUNT INCLUDES [facility] Medical History Asthma BMI 29.0-29.9,adult Overweight (BMI 25.0-29.9) Constipation Hiatal hernia Intestinal malabsorption following gastrectomy Encephalomalacia on imaging study Urinary tract infection Body mass index (BMI) of 37.0-37.9 in adult Shortness of breath Preoperative examination Morbid obesity due to excess calories BMI 37.0-37.9, adult Dysphagia Eczema Obesity (BMI 30-39.9) OAB (overactive bladder) Insomnia Surgical History Hx of brain surgery History of repair of hiatal hernia S/P laparoscopic sleeve gastrectomy History of tooth extraction History of bladder surgery History of esophagogastroduodenoscopy (EGD) Family History Father HTN (hypertension) Mother HTN (hypertension) Brother No problems noted. Sister No problems noted. Sister No problems noted. Sister No problems noted. Daughter No problems noted. 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 Denies diarrhea. - General: Denies current fever, runny nose, cough, or mucus production. All systems reviewed & are unremarkable except as noted in HPI and below Physical Exam Vital Signs: Last Vital Signs Temp 98 F 11/17/24 14:35 Pulse 92 01/06/25 14:35 BP 124/80 11/17/24 14:35 Pulse Ox 98 11/17/24 14:35 Oxygen Delivery Method Room Air 11/17/24 14:35 Const Other: Appearance: Alert. Oriented X3. No acute distress. Head: Normal external exam. Normocephalic. Atraumatic. Eyes: Pupils are equal, round, and reactive to light. Extraocular movements intact. Conjunctiva and sclera normal. Eyelids normal. Ears: External auditory canal normal. Throat: Pharynx normal. Uvula midline. Moist mucous membranes. No trismus noted. No drooling noted. No muffled voice noted. Patient reports feeling like something is stuck in the throat. Neck: Normal inspection. Neck supple. Full range of motion. No adenopathy. Thyroid Normal. No meningeal signs. No neck mass noted. Cardiovascular: Normal heart rate and rhythm. Respiratory: No respiratory distress. Painless inspiration. No accessory muscle usage noted or decreased air movement noted. Abdomen: Soft and nontender. Bowel sounds normal in all 4 quadrants. No distention noted. No organomegaly noted. No visible injury noted. No abdominal pain reported. Back: No costovertebral angle tenderness. Full range of motion noted. Skin: Skin warm and dry. Normal skin color. Normal skin turgor. No rashes/lesions/lacerations noted. Extremities: Extremities exhibit normal range of motion. Extremities nontender. Neuro: Oriented X 3. No motor deficit. No sensory deficit. Reflexes normal. Patient reports dizziness and shakiness. Assessment & Plan Assessment & Plan (1) Nausea: Code(s): R11.0 - Nausea Plan: - Prescribe Zofran for nausea management. - Prescribe Omeprazole to manage potential acid reflux contributing to nausea. - Recommend calling primary care physician for immediate evaluation of possible electrolyte imbalance through blood work. - No imaging indicated at this time as no abd pain and abd is soft and non tender on exam. Patient was informed and verbally consented to the use of an ambient scribe for clinic note documentation during this visit. Plan I discussed with the patient the likely contribution of diet and insufficient vitamin intake to her symptoms, possibly causing electrolyte imbalances. We agreed on the need for further evaluation via blood work to assess for electrolyte abnormalities such as low potassium or magnesium. I emphasized the importance of achieving a balanced diet and adequate hydration to aid recovery. Omeprazole and Zofran were prescribed to address nausea and potential esophageal irritation. The patient was informed about the necessity of contacting her primary care provider for follow-up evaluation and testing. Medications: New ondansetron 4 mg PO Q8H PRN 20 tabs 0RF nausea and vomiting omeprazole magnesium (Acid Acquisition Manager (omeprazole)) 20 mg PO DAILY 30 caps 0RF Patient Instructions: - Take prescribed Zofran as directed to alleviate nausea. - Take prescribed Omeprazole daily for acid reflux management. - Contact your primary care doctor to arrange necessary blood work. - Increase fluid intake with drinks like beth serena or electrolytes to prevent dehydration. - Monitor symptoms and seek care promptly if symptoms worsen or new symptoms appear. Coding Level of Care Code Est Pt Level 4 (65845) Diagnoses Nausea R11.0
[2024-11-17 14:35] VITALS: BP 124/80; PULSE 92; TEMP 36.6; O2SAT 98
== END 2024-11-17 15:01 | disposition home or self-care (01) ==
PROVIDERS: PCP Internal Medicine; Visit Provider Physician Assistant Medical
DX: R11.0 Nausea (principal)

== ENCOUNTER → 2024-11-17 12:45 | Outpatient (BNVA) | payer OTHER, SELFPAY | PROVIDERS: PCP Internal Medicine; Visit Provider Physician Assistant Medical | DX: R11.0 Nausea (principal) | CPT/HCPCS: 99212 ==

== ENCOUNTER 2025-01-23 15:20 | Outpatient (AMB) | payer OTHER, SELFPAY ==
--- NOTE | 2025-01-23 15:26 | MHC.OFFWIV ---
Intake Vital Signs 01/23/25 15:34 Weight 210 lb BP 122/78 Blood Pressure Location Lt brachial Position Sitting Pulse 111 H Pulse Source Pulse Oximeter Pulse Oximetry (%) 98 Oxygen Delivery Method Room Air Intake Visit Reasons: EP UTI? Intake Note: Patient here for pain on urination, frequency, fatigue that has been present for a couple of days. Patient Tobacco Use Status: Never used Tobacco Allergies grass Allergy (Severe, Uncoded 11/17/24 14:49) throat closure from cut grass shellfish Allergy (Severe, Uncoded 11/17/24 14:49) throat closure from steamed shellfish banana Allergy (Mild, Uncoded 11/17/24 14:49) Hives coffee deal Allergy (Mild, Uncoded 11/17/24 14:49) Hives dust/dustmites Allergy (Mild, Uncoded 11/17/24 14:49) Itching Do you need a note to return to daycare/school/sports/work: No HPI HPI Comments History of Present Illness Details This is a 39-year-old female who presented to the walk-in clinic with concerns for urinary tract infection. Patient states she has been experiencing urinary frequency/urgency with decreased urine volume, dysuria, and mild hematuria x3 days. She denies any flank or back pain. She denies any fevers or chills but states that she has been feeling generally unwell over the past several days although she believed this was due to her recent surgery. Of note, patient recently underwent left foot surgery under general anesthesia but she is not sure if she had a catheter placed. She is on enoxaparin for DVT prophylaxis following orthopedic surgery. [facility] Medical History Asthma BMI 29.0-29.9,adult Overweight (BMI 25.0-29.9) Constipation Hiatal hernia Intestinal malabsorption following gastrectomy Encephalomalacia on imaging study Urinary tract infection Body mass index (BMI) of 37.0-37.9 in adult Shortness of breath Preoperative examination Morbid obesity due to excess calories BMI 37.0-37.9, adult Dysphagia Eczema Obesity (BMI 30-39.9) OAB (overactive bladder) Insomnia Surgical History Hx of brain surgery History of repair of hiatal hernia S/P laparoscopic sleeve gastrectomy History of tooth extraction History of bladder surgery History of esophagogastroduodenoscopy (EGD) Family History Father HTN (hypertension) Mother HTN (hypertension) Brother No problems noted. Sister No problems noted. Sister No problems noted. Sister No problems noted. Daughter No problems noted. 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: Yes (2 children, father will assist in the post-op period) Do you presently have visiting nurse or other home services: No Alcohol intake: never Patient Tobacco Use Status: Never used Tobacco service: No Current occupational status: employed Review of Systems Const All systems reviewed & are unremarkable except as noted in HPI and below Reports no additional complaints Eyes Reports no additional complaints ENT Reports no additional complaints Card Reports no additional complaints Resp Reports no additional complaints GI Reports no additional complaints Reports no additional complaints Musc Reports no additional complaints Skin/Breast Reports system reviewed and no additional complaints, except as documented Neuro Reports no additional complaints Psych Reports no additional complaints Endo Reports no additional complaints Derek/Lymph Reports no additional complaints Aller/Immun Reports no additional complaints Physical Exam Vital Signs: Last Vital Signs Pulse 111 H 01/23/25 15:34 BP 122/78 01/23/25 15:34 Pulse Ox 98 01/23/25 15:34 Oxygen Delivery Method Room Air 01/23/25 15:34 Const Other: Vital signs reviewed. Constitutional: Non-toxic appearing. No acute distress. Well-developed and well-nourished. HEENT: Normocephalic and atraumatic. Skin: Warm and dry. No rashes or lesions noted. Neck: Full and painless range of motion. No cervical lymphadenopathy. Cardio: Regular rate and rhythm. No murmurs, gallops, or rubs. No lower extremity edema. No JVD. Pulmonary: No respiratory distress. No accessory muscle usage. Clear to auscultation bilaterally without wheezing, crackles, or rhonchi. Gastrointestinal: Soft, nontender, and nondistended in all 4 quadrants. Normoactive bowel sounds in all 4 quadrants. Genitourinary: No CVA tenderness. Musculoskeletal: Normal range of motion in joints throughout the body. No deformity or other signs of injury. Neuro: Alert and oriented x4. Cranial nerves 2-12 grossly intact. No focal deficits appreciated. Psych: Normal mood and affect. Results AMB Urinalysis, Automated UA Leukoctes 15 Umm/uL Last Edit by LADI Frank on 01/23/25 15:48 UA Nitrite Negative Last Edit by Philip Delarosa [facility] on 01/23/25 15:48 UA Urobilinogen 0.2 mg/dL Last Edit by Philip Delarosa [facility] on 01/23/25 15:48 UA Protein 0 mg/dL Last Edit by Philip Delarosa [facility] on 01/23/25 15:48 UA pH 6.0 Last Edit by Philip Delarosa [facility] on 01/23/25 15:48 UA Blood 25 Padilla/uL Last Edit by Philip Delarosa [facility] on 01/23/25 15:48 UA Specific [place] 1.025 Last Edit by Philip Delarosa [facility] on 01/23/25 15:48 UA Ketone Positive Last Edit by Philip Delarosa [facility] on 01/23/25 15:48 UA Bilirubin 1 mg/dL Last Edit by Philip Delarosa [facility] on 01/23/25 15:48 UA Glucose 0 mg/dL Last Edit by Philip Delarosa [facility] on 01/23/25 15:48 Assessment & Plan Assessment & Plan (1) Acute cystitis: Code(s): N30.00 - Acute cystitis without hematuria Qualifiers: Hematuria presence: with hematuria Qualified Code(s): N30.01 - Acute cystitis with hematuria Plan This is a 39-year-old female presenting to the walk-in clinic complaining of urinary frequency/urgency with decreased urine volume, dysuria, and hematuria x 2-3 days. POCT urinalysis shows positive leukocyte esterase with 1+ blood. Patient has no CVA tenderness or flank/back pain to suggest acute pyelonephritis. History and physical most consistent with an acute uncomplicated cystitis with hematuria. Patient given a prescription for PO cefuroxime 250 mg twice daily x5 days. Recommended symptomatic management including increased fluids and acetaminophen/ibuprofen as needed for pain/fever as long as patient has no medical contraindications. Patient was advised to follow-up here or proceed directly to the emergency room if they were to develop fever/chills, nausea/vomiting, flank/back pain, or worsening/persistent symptoms. She was also encouraged to follow up with her urologist due to frequent and recurrent urinary tract infections. Patient verbalizes understanding and they are in agreement with the plan. Orders: Orders AMB Urinalysis Automated Today Z13.9 - Encounter for screening, unspecified Urine Culture Today N30.01 - Acute cystitis with hematuria Medications: New cefuroxime axetil 250 mg PO BID 10 tabs 0RF Coding Level of Care Code Est Pt Level 3 (79605) Diagnoses Acute cystitis with hematuria N30.01 Hematuria presence: with hematuria
[2025-01-23 15:34] VITALS: BP 122/78; PULSE 111; O2SAT 98
--- OUTSIDE RECORDS SUMMARY | 2025-01-23 16:32 | XMS_ITS | Continuity of Care Document ---
Author Organization [facility] ter Address [address] [place] [id number]- Care Team Providers Care Route Sales Specialist Name Role Phone Francis Galvan MD, Leena Lee Primary Care [facility]icia n [id number] Date[facility]s): [facility]/19/25 - 01/19/[address] [id number] Discharge Disposition: A-D/C Home Attending Physician: Erickson Yeh MD Admitting Physician: Erickson Yeh MD Referring Physician: Erickson Yeh MD Encounter Type: Disch Daystay Allergies, Adverse Reactions, Alerts Substance Criticality Severity Reaction Reaction Severity Status shellfish Active Other Food Allergy 1 Active Bananas Active 1coffee deal Immunizations Given and Recorded Vaccine Date Status Refusal Reason tetanus/diphtheria/pertussis, acel(Tdap) 12/25/13 Given Medications Cyclobenzaprine = 10 mg, By Mouth, Daily at bedtime, 0 Refills, Maintenance, 12/14/16 10:08:28 AM EST Start Date: 12/14/16 Status: Ordered Repeat number: 1 docusate sodium 100 mg oral capsule 1 capsule = 100 mg, By Mouth, 2 times a day, PRN as needed for constipation, # 20 capsule, 0 Refills, Maintenance, 03/23/23 11:06:00 AM EDT, Capsule, Partial fill upon patient request if the prescription is for a schedule II opioid drug. Start Date: 03/23/23 Status: Ordered Quantity: 20.0 Unit: capsule Repeat number: 1 fexofenadine 180 mg oral tablet 1 tablet = 180 mg, By Mouth, Daily, # 30 tablet, 0 Refills, Maintenance, 03/23/23 11:08:00 AM EDT, Tablet, Partial fill upon patient request if the prescription is for a schedule II opioid drug. Start Date: 03/23/23 Status: Ordered Quantity: 30.0 Unit: tablet Repeat number: 1 ibuprofen 800 mg oral tablet 1 tablet = 800 mg, By Mouth, Every 8 hours, PRN Pain , Moderate, # 90 tablet, 0 Refills, Maintenance, 03/04/15 10:39:17 AM EDT, Tablet, [facility]/pharmacy #[id number] Start Date: 03/04/15 Stop Date: 04/03/15 Status: Ordered Quantity: 90.0 Unit: tablet Repeat number: 1 magnesium citrate - oral tablet = 200 mg, By Mouth, Daily in AM, 0 Refills, Maintenance, 12/14/16 10:05:23 AM EST Start Date: 12/14/16 Status: Ordered Repeat number: 1 Oxycodone 5mg Oral Tablet (PACU ONLY) 5 mg, Tablet, By Mouth, Once, in PACU ONLY, PRN for Pain , Moderate, Routine, 01/19/25 1:56:00 PM EDT Start Date: 01/19/25 Stop Date: 01/19/25 Status: Completed Repeat number: 1 Toviaz 8 mg oral tablet, extended release 1 tablet = 8 mg, By Mouth, Daily, 0 Refills, Maintenance, 12/14/16 10:04:14 AM EST Start Date: 12/14/16 Status: Ordered Repeat number: 1 traZODone 150 mg oral tablet 1 tablet = 150 mg, By Mouth, Daily at bedtime, # 30 tablet, 0 Refills, Maintenance, 04/20/22 7:34:00 PM EDT, Tablet, Partial fill upon patient request if the prescription is for a schedule II opioid drug. Start Date: 04/20/22 Status: Ordered Quantity: 30.0 Unit: tablet Repeat number: 1 Zinc = 140 mg, By Mouth, Daily, 0 Refills, Maintenance, 12/14/16 10:04:36 AM EST Start Date: 12/14/16 Status: Ordered Repeat number: 1 Problem List Condition Confirmation Course Effective Dates Status Health St atus Informant Right leg DVT Confirmed Active Numbness in right leg Confirmed Active Obese class I Confirmed Active Vital Signs Most recent to oldest [Reference Range]: 1 2 3 Height 167.6 cm (01/19/25 12:03 PM) 167.6 cm (12/16/24 2:04 PM) Weight 95.25 kg (01/19/25 12:03 PM) 95.25 kg (12/16/24 2:04 PM) Oxygen Saturation [94-100 %] 99 % (01/19/25 2:15 PM) 100 % (01/19/25 2:00 PM) 100 % (01/19/25 1:45 PM) Pulse Rate [55-90 bpm] 73 bpm (01/19/25 12:03 PM) Body Mass Index [18.5-24.99 kg/m2] 33.91 kg/m2 *>HHI* (01/19/25 12:03 PM) 33.91 kg/m2 *>HHI* (12/16/24 2:04 PM) Blood Pressure [90-138/55-84 mm Hg] 143/92mm Hg *H* (01/19/25 2:15 PM) 140/95mm Hg *H* (01/19/25 2:00 PM) 127/91mm Hg (01/19/25 1:45 PM) Respiratory Rate [16-30 br/min] 19 br/min (01/19/25 2:52 PM) 15 br/min *L* (01/19/25 2:15 PM) 16 br/min (01/19/25 2:00 PM) Temperature [96.8-100.4 DegF] 98.0 DegF (01/19/25 2:15 PM) 98.3 DegF (01/19/25 1:45 PM) 97.8 DegF (01/19/25 12:03 PM) Mode of Delivery (Oxygen) Room air (01/19/25 1:45 PM) Room air (01/19/25 12:55 PM) Room air (01/19/25 12:50 PM) Temperature Route Temporal (01/19/25 2:15 PM) Temporal (01/19/25 1:45 PM) Temporal (01/19/25 12:03 PM) Dry Weight 97.7 kg (01/19/25 12:03 PM) 95.25 kg (12/16/24 2:04 PM) Weight Obtained Via Patient/family state d (12/16/24 2:04 PM) Dry Weight Obtained Via Standing scale (01/19/25 12:03 PM) Patient/family stated (12/16/24 2:04 PM) Social History Social History Type Response Smoking Status Never smoker; Tobacc o user in household: No entered on: 03/04/15 Sex Sex Representation Female (finding) History and physical note * Event Display: History and Physical Hospital Authored Date: * Event Display: History and Physical Hospital Authored Date: * Event Display: History and Physical Hospital Authored Date: Note * Trudi Hodges RN: PERFORM Event Display: Discharge/Transfer Note Hospital Authored Date: [id number] Nursing Discharge Note Entered On: 01/19/2025 15:07 EDT Performed On: 01/19/2025 15:06 EDT by Trudi Hodges RN Nursing Discharge Note 2 Discharge Time : 01/19/2025 14:55 EDT Discharge Level of Care at Discharge : Home/Prison/Foster Care Patient Left Unit Via : Wheelchair Patient Accompanied Off Unit with : Significant other DC Instructions Provided & Signed by Pt : Yes Patient Understands D/C Instructions : Yes Verbalized Understanding of D/C Plan By : Family, Patient Patient Instructions Discharge Signed : Yes Did Pt have Specialty Bed or Wound Vac : No Trudi Hodges RN - 01/19/2025 15:06 EDT * Trudi Hodges RN: PERFORM Event Display: Patient Education/Instruction Authored Date: [id number] Surgery Adult Discharge Instructions [address] [address] Name: GLENIS MENDIETA : 1985?? Visit: 01/19/2025 11:29?? Current Date: 01/19/2025 14:42 ?? Account: [id number]?? Surgery Discharge Instructions We would like to thank you for allowing us to assist you with your healthcare needs. The following includes patient education materials and information regarding your injury/illness. Our entire staffstrives to provide an excellent experience for our patients and their families. PLEASE ENSURE YOU FOLLOW-UP PER THE INSTRUCTIONS BELOW! ?? YOUR OPINION IS IMPORTANT TO US! Please complete the survey you may receive by mail or email. Your feedback will be used to make improvements to the healthcare experiences of our patients and their families. Surveys are administered by [employer] ?? If further treatment with your primary care physician or another doctor is recommended, it is important for you to keep the appointment. Call your primary care physician or return to the Emergency Department immediately if your condition worsens, fails to improve, or new symptoms develop. If you need to find a doctor, you can call [facility] for a referral at [phone] or toll free at [phone] ([phone]) or log in to [email or web address].. ?? [facility], in keeping with [facility] guidance, no longer requires face masks for staff, patientsor visitors in most situations. Similiar to time spent indoors at other locations, there is the chance that you were exposed to repiratory viruses during your time with us (such as flu or COVID-19). If you develop symptoms concerning for a viral respiratory infection, please seek testing (and treatment if indicated) from your medical provider or home test kit. ?? You can view and manage your care through the patient portal or by using a health care gosia of your choosing. [employer] is a website that allows you to securely view your medical information including your hospital discharge summary, office visit summaries, medications and follow-up visits. You can also request appointments, renew medications, and request access to your medical information using a health care gosia of your choosing, or just ask a question. You are entitled to know the individuals who participated in your treatment. This information is available within your medical record and will be provided upon your request. You can enroll at [email or web address] or register d uring your next office visit. You have been discharged from [facility], Patient Care Unit: [facility]??. If you have any questions regarding these instructions after you leave, please call us and we will be happy to assist you. [facility] Your Care Team Attending Physician Erickson Yeh MD?? Discharging Providers Erickson Yeh MD Reason for Admission LEFT FOOT FIRST TARSOMETATARSAL PAINFUL RETAINED H Primary Care Provider Leena Garcia MD? Advance Directive Health Care Proxy on File No What to do next Instructions From Your Doctor ?? Orders?? evaluation by surgeon, ??01/19/25 13:42:00 EDT?? Prescriptions??, ??01/19/25 13:42:00 EDT?? Instructions from your Care Team ?? You received Lovenox 40mg on 01/19/25 at 2:45pm. You received Oxycodone 5mg at 2:45pm. Starting tomorrow 01/20/25 please take Lovenox 40 mg SC once daily for 14 days. DO NOT take NSAIDs while taking Lovenox. Your prescriptions were sent electronically. ?? Elevate leg on pillow. Reinforce Hammad wrap as necessary. Please use crutches and/or rollabout as directed in office. Weight Bearing as tolerated wearing postop shoe. Please??apply ice, on 20 minutes and off 40 minutes, while awake for 48 hours or as needed. Driving to be determined at the postoperative appointment. Work or school to be determined at the postoperative appointment. Please call Dr. Yeh's office with any questions or concerns. ?? You Need to Schedule the Following Appointments Follow Up with??Erickson Yeh Where: [address] [facility] [place] [address]- Business (1) Follow Up with??Leena Galvan When:??In 0 days Where: [address] [place] [address] [place] [address]- Business (1) Discharge Medications GLENIS MENDIETA :1985 Visit Date:01/19/2025 Medications: Please continue your medications until treatment is completed or stopped by your provider. You may resume your daily prescription medications. Discuss any questions related to medications with your provider. What How Much When Instructions Next Dose Unchanged Cyclobenzaprine 10 Milligram Oral Daily at Bedtime Unchanged Docusate (docusate sodium 100 mg oral capsule) 1 capsule Oral Twice a day as needed for as needed for constipation Unchanged fesoterodine (Toviaz 8 mg oral tablet, extended release) 1 tab(s) Oral Daily Unchanged Fexofenadine (fexofenadine 180 mg oral tablet) 1 tab(s) Oral Daily Unchanged Ibuprofen (ibuprofen 800 mg oral tablet) 1 tab(s) Oral Every 8 hours as needed for Pain , Moderate Duration: 30 Days Unchanged Magnesium Citrate (magnesium citrate - oral tablet) 200 Milligram Oral Daily in the morning Unchanged Trazodone (traZODone 150 mg oral tablet) 1 tab(s) Oral Daily at Bedtime Unchanged Zinc Sulfate (Zinc) 140 Milligram Oral Daily Allergies (NKA means No Known Allergies) Bananas Other Food Allergy shellfish Education Materials Below is the list of Educational Leaflet Providered with your Discharge Instructions. [employer] Patient Education - Enoxaparin Injection?? [employer] Patient Education - Surgery Voiding Instructions?? [employer] Patient Education - Surgery Medical Daystay Surgical Overnight Discharge Instructions?? Valuables and Belongings I fully understand and agree that [facility] accepts no responsibility for all my personal property including clothing, toilet articles, radios, jewelry, dentures, hearing aids, rings, money, or any other property that is in my possession or is brought to me after admission. I understand certain valuables may be placed in a hospital safe for a short period of time. I understand that the hospital is not liable for loss or damage due to accident, fire, or other natural occurrence while said property is in the safe. I accept full responsibility for any personal property that I keep with me, and will not hold the hospital responsible in case of loss or disappearance. I acknowledge that i have been encouraged to send valuables and belongings home. ?? Date for Pt to Sign Valuables/Belongings: 01/19/25 12:03:00 ?? Valuables & Belongings ?? Clothes Electronic devices Jewelry Monetary Items Personal devices Miscellaneous Medications (Valuables) Valuables at Bedside Jacket, Pants, Shirt, Shoes, Undergarments Cell phone, Other: bladder stim controler Watch ?? Glasses ? Valuables Sent Home ? Valuables Sent to Security ? Valuables Sent to Locker ? Other Discharge Information ? Pulmonary Rehab Status?? Pulmonary Rehab Discharge Status?? Respiratory Rate:??15 br/min??Low ? Common Emergency Awareness Tips IS IT A STROKE? Act FAST and Check for these signs: FACE Does the face look uneven? ARM Does one arm drift down? SPEECH Does their speech sound strange? TIME Call at any sign of stroke ?? Heart Attack Signs Chest discomfort: Most heart attacks involve discomfort in the center of the chest and lasts more than a few minutes, or goes away and comes back. It can feel like uncomfortable pressure, squeezing, fullness or pain. Discomfort in upper body: Symptoms can include pain or discomfort in one or both arms, back, neck, jaw or stomach. Shortness of breath: With or without discomfort. Other signs: Breaking out in a cold sweat, nausea, or lightheaded. Remember, MINUTES DO MATTER. If you experience any of these heart attack warning signs, call to get immediate medical attention! ?? Smoking can increase your chances of developing chronic health problems and can cause harmful effects to other family members in your house. If you smoke, you are strongly encouraged to quit. Please call [facility] at [phone] or [phone] ([phone]) or log in to [email or web address] for referrals to smoking cessation programs. ?? The National Suicide Prevention Hotline is available 04/06 if you or someone you know needs to find a reason to keep living. By calling 8-184-203-Yuantiku ([phone]) you'll be connected to a skilled, trained counselor at a crisis center in your area. SURGERY DISCHARGE INSTRUCTIONS SIGNATURE PAGE NANNETTE MENDIETAICA Location:[facility] Registration Date and Time:01/19/2025 11:29 EDT Primary Care Physician: Francis Galvan MD, Leena Lee, Attending Physician: Rao FRANCO, Erickson Brown, GLENIS TALAMANTES, have received the above patient education materials/instructions and have verbalized understanding. If ambulance or transport services are being used I further acknowledge being given a choice of service. ?? If you need to contact me, please call me at this number: . Patient/Chucking Machine Operator Name: GLENIS MENDIETA Patient/Chucking Machine Operator Signature: Relationship to Patient:____SELF Witness Name/Signature: Date: 01/19/25 * Trudi Hodges RN: PERFORM, SIGN, VERIFY Event Display: Patient Education Handout Authored Date: [id number] * Trudi Hodges RN: PERFORM Event Display: Patient Education Leaflets Authored Date: [id number] Enoxaparin Injection ?? [id number] Enoxaparin Injection Brand Name(s): Lovenox??; also available generically ?? IMPORTANT WARNING: If you have epidural or spinal anesthesia or a spinal puncture while taking a 'blood thinner' such as enoxaparin, you are at risk for having a blood clot form in or around your spine that could causeyou to become paralyzed. Tell your doctor if you are taking other anticoagulants ('blood thinners')such as warfarin (Coumadin), anagrelide (Agrylin), aspirin or nonsteroidal anti-inflammatory drugs (ibuprofen, naproxen), cilostazol (Pletal), clopidogrel (Plavix), dipyridamole (Persantine), eptifibatide (Integrilin), prasugrel (Effient), sulfinpyrazone (Anturane), ticlopidine (Ticlid), and tirofiban (Aggrastat). If you experience any of the following symptoms, call your doctor immediately: numbness, tingling, leg weakness or paralysis, and loss of control over your bladder or bowels. Talk to your doctor about the risk of taking enoxaparin. Keep all appointments with your doctor. WHY is this medicine prescribed? Enoxaparin is used to prevent blood clots in the leg in patients who are on bedrest or who are having hip replacement, knee replacement, or stomach surgery. It is used in combination with aspirin to prevent complications from angina (chest pain) and heart attacks. It is also used in combination with warfarin to treat blood clots in the leg. Enoxaparin is in a class of medications called low molecular weight heparins. It works by stopping the formation of substances that cause clots. HOW should this medicine be used? Enoxaparin comes as an injection in a syringe to be injected just under the skin (subcutaneously) but not into your muscle. It is usually given twice a day. You will probably begin using the drug while you are in the hospital and then use it for a total of 10 to 14 days. Follow the directions on your prescription label carefully, and ask your doctor or pharmacist to explain any part you do not und erstand. Use enoxaparin exactly as directed. Do not inject more or less of it or inject it more often than prescribed by your doctor. Continue to use enoxaparin even if you feel well. Do not stop taking enoxaparin without talking to your doctor. Your healthcare provider will teach you how to give yourself the shot or arrangements will be made for someone else to give you the shot. Enoxaparin is usually injected in the stomach area. You must use a different area of the stomach each time you give the shot. If you have questions about where to give the shot, ask your healthcare provider. Each syringe has enough drug in it for one shot. Do not use the syringe and needle more than one time. Your doctor, pharmacist, or health care provider will tell you how to dispose of used needles and syringes to avoid accidental injury. Keep syringes and needles out of reach of children. To inject enoxaparin, follow these instructions: ??? Wash your hands and the area of skin where you will give the shot. ??? Look at the syringe to be sure the drug is clear and colorless or pale yellow. ??? Take the cap off the needle. Do not push any air or drug out of the syringe before giving the shot unless your healthcare provider tells you to. ??? Lie down and pinch a fold of skin between your finger and thumb. Push the entire needle intothe skin and then press down on the syringe plunger to inject the drug. Hold onto the skin the entire time you give the shot. Do not rub the site after you give the shot. Are there OTHER USES for this medicine? This medication may be prescribed for other uses; ask your doctor or pharmacist for more information. What SPECIAL PRECAUTIONS should I follow? Before taking enoxaparin, ??? tell your doctor and pharmacist if you are allergic to enoxaparin, heparin, any other drugs, orpork products. ??? tell your doctor and pharmacist what prescription and nonprescription medications, vitamins, nutritional supplements, and herbal products you are taking or plan to take while receiving enoxaparin. Your doctor may need to change the doses of your medications or monitor you carefully for side effects. ??? the following nonprescription products may interact with enoxaparin: aspirin and nonsteroidal anti-inflammatory drugs (NSAIDs) such as ibuprofen (Advil, Motrin, others) and naproxen (Aleve, Naprosyn, others). Be sure to let your doctor and pharmacist know that you are takingthese medications before you start receiving enoxaparin. Do not start any of these medications while receiving enoxaparin without discussing with your healthcare provider. ??? tell your doctor if youhave an artificial heart valve and if you have or have ever had kidney disease, an infection in your heart, a stroke, a bleeding disorder, ulcers, or a low platelet count. ??? tell your doctor if youare , plan to become , or are breast-feeding. If you become while taking enoxaparin, call your doctor. ??? if you are having surgery, including dental surgery, tell the doctor or dentist that you are taking enoxaparin. What should I do IF I FORGET to take a dose? Inject the missed dose as soon as you remember it. However, if it is almost time for the next dose,skip the missed dose and continue your regular dosing schedule. Do not inject a double dose to makeup for a missed one. What SIDE EFFECTS can this medicine cause? If you experience any of the following symptoms or those listed in the IMPORTANT WARNING section, call your doctor immediately: ??? unusual bleeding or bruising ??? black or bloody stools ??? blood in urine ??? swollen ankles and/or feet If you experience a serious side effect, you or your doctor may send a report to the Food and Drug Administration's (FDA) MedWatch Adverse Event Reporting program online (https://www.fda.gov/Safety/MedWatch) or by phone ( ). What should I know about STORAGE and DISPOSAL of this medication? Keep this medication out of reach of children. Store the syringes at room temperature and away fromexcess heat and moisture (not in the bathroom). Do not use the syringe if it leaks or if the fluid is dark or contains particles. Unneeded medications should be disposed of in special ways to ensure that pets, children, and otherpeople cannot consume them. However, you should not flush this medication down the toilet. Instead,the best way to dispose of your medication is through a medicine take-back program. Talk to your pharmacist or contact your local garbage/recycling department to learn about take-back programs in your community. See the FDA's Safe Disposal of Medicines website (https://goo.gl/c4Rm4p) for more information if you do not have access to a take-back program. It is important to keep all medication out of sight and reach of children as many containers (such as weekly pill minders and those for eye drops, creams, patches, and inhalers) are not child-resistant and young children can open them easily. To protect young children from poisoning, always lock safety caps and immediately place the medication in a safe location ??? one that is up and away and out of their sight and reach. https://www.upandaway.org What should I do in case of OVERDOSE? In case of overdose, call the poison control helpline at . Information is also available online at https://www.poisonhelp.org/help. If the victim has collapsed, had a seizure, has trouble breathing, or can't be awakened, immediately call emergency services at 911. What OTHER INFORMATION should I know? Keep all appointments with your doctor and the laboratory. Your doctor will order certain lab teststo monitor your enoxaparin therapy. Enoxaparin prevents blood from clotting so it may take longer than usual for you to stop bleeding if you are cut or injured. Avoid activities that have a high risk of causing injury. Call your doctorif bleeding is unusual. Do not let anyone else use your medication. Your prescription is probably not refillable. It is important for you to keep a written list of all of the prescription and nonprescription (kzhx-cun-[id number]) medicines you are taking, as well as any products such as vitamins, minerals, or otherdietary supplements. You should bring this list with you each time you visit a doctor or if you areadmitted to a hospital. It is also important information to carry with you in case of emergencies. This report on medications is for your information only, and is not considered individual patient advice. Because of the changing nature of drug information, please consult your physician or pharmacist about specific clinical use. The [employer] represents that the information provided hereunder was formulated with a reasonable standard of care, and in conformity with professional standards in the field. The [employer] makes no representations or warranties, express or implied, including, but not limited to, any implied warranty of merchantability and/or fitness for a particular purpose, with respect to such information and specifically disclaims all such warranties. Users are advised that decisions regarding drug therapy are complex medical decisions requiring the independent, informed decision of an appropriate health patient care technician, and the information is provided for informational purposes only. The entire monograph for a drug should be reviewed for a thorough understanding of the drug's actions, uses and side effects. The [employer] does not endorse or recommend the use of any drug.The information is not a substitute for medical care. AHFS?? Patient Medication Information???. ?? Copyright, 2023. The [employer]??, [address], [address], [place], [place]. All Rights Reserved. Duplication for commercial use must be authorized by [facility]. Selected Revisions: May 31, 2024. AHFS?? Patient Medication Information???. ?? Copyright, 2024 ?? * Trudi Hodges RN: PERFORM Event Display: Patient Education Leaflets Authored Date: [id number] Surgery Voiding Instructions ?? 305 Home Voiding Instructions ?? You should pass urine 6-8 hours after you are discharged from the [facility] Recovery Room. The amount should be about one cup of urine with each voiding. Be aware that you should feel like you are emptying your bladder completely. If you are passing very small amounts of urine frequently it could be over-flow and you may not be emptying your bladder. Things to try to encourage urination: Drink warm coffee or tea ??? unless your physician told you not to. Blow bubble through your straw into a small glass of water. Trickle lukewarm water onto your private area. Walk around as much as able. Let the faucet run slowly. Put your hand in warm water. Try to relax. If you have any concerns about urination, in the above time frame after your discharge, you should call your Doctor. ? * Trudi Hodges RN: PERFORM Event Display: Patient Education Leaflets Authored Date: [id number] Surgery Medical Daystay Surgical Overnight Discharge Instructions ?? 295 Medical Daystay/Surgical Overnight Discharge Instructions ? Since your coordination and judgment may be altered by medication and/or anesthesia, a responsible adult must drive you home from the hospital. ? If you have received medication for pain or sedation while under our care, you should not drive, operate machinery, drink alcohol, or sign any legal documents for 24 hours.?? You should have someone with you at home tonight. ? Remain at home the day of discharge.?? You may be up and about unless otherwise instructed by your physician. ? You may resume your daily prescription medication schedule.?? Any depressant medication should be avoided for 24 hours unless otherwise instructed by your surgeon or anesthesiologist. ? Call your physician for a follow-up appointment.? If you experience unusual or severe pain not relied by your pain medication, excessive bleedingor drainage, persistent nausea and vomiting, excessive swelling or redness, foul odor from incisionsite or fever over 100.6F, you need to call your physician. ? A follow-up phone call by a nurse will be made the day after your procedure.?? If you have stayed with us over night, you will not be receiving a follow-up phone call. ? Nausea and vomiting are a common side effect of prescription pain medication.?? We recommend that pills are not taken on an empty stomach.?? While taking any prescription pain medication you should not drive or drink alcohol. ? Patient Care team information Care Team Personnel Name: Naomi Sim Position: S Outreach Member Role: Lifetime Consulting Physician Name: Francis Galvan MD, Leena Lee Position: Reference Physician Member Role: PCP Address: [address] [place] [phone] Telecom: Care Team Related Persons Name: GAYATRICRISTINE Name: AMRITA MENDIETA Insurance Providers Guarantor name: GLENIS CASTN [facility] Information #: 2 Payer: [employer] Member Number: [id number] Policy Number: NA Group Number: [id number] Plan Information #: 4 Payer: [employer] Member Number: [id number] Policy Number: NA Group Number: [id number] Plan Information #: 1 Payer: [employer] [facility] Member Number: [id number] Policy Number: NA Group Number: NA Health Plan Information #: 3 Payer: [employer] [facility] Member Number: [id number] Policy Number: NA Group Number: NA
--- OUTSIDE RECORDS SUMMARY | 2025-01-23 16:32 | XMS_ITS | Clinical Summary ---
Author Organization [facility] [address] [place] [address] [address] [place] [address] Phone Care Team Providers Care Seat Pack Inspector Name Role Phone Yolie Cardenas MD Primary Care Provider [phone] Allergies Active Allergy Reactions Criticality Noted Date Comments Banana Itching Low 08/28/2017 eczema Coffee 11/06/2019 Allergy is to the coffee deal Shellfish Derived 08/23/2023 Medications fexofenadine (JEFFREY) 180 mg tablet Take 1 tablet (180 mg total) by mouth 1 (one) time each day. 4 Active cyclobenzaprine (FLEXERIL) 10 mg tablet Take 1 tablet (10 mg total) by mouth at bedtime as needed. 4 Active clobetasoL (TEMOVATE) 0.05 % cream APPLY TO AFFECTED AREAS TWICE DAILY NEEDED SPARINGLY 4 Active etonogestreL-et hinyl estradioL (NUVARING) 0.12-0.015 mg/[address] 1 Each vaginally See Admin Instructions. Insert vaginally for three weeks, then remove for one week. Repeat with new one 0 Active albuterol HFA (PROAIR HFA ; PROVENTIL HFA ; VENTOLIN HFA) 90 mcg/actuation inhaler Inhale 2 Puffs into the lungs every 4 hours as needed for Cough or Wheezing for up to 180 days. 0 Active fesoterodine 8 mg tablet extended release 24 hr Take by mouth daily. Active hydrocortisone 2.5 % cream Apply sparingly 1 - 3 times a day to hands as needed 0 Active traZODone (DESYREL) 150 mg tablet TAKE 1 TABLET BY MOUTH EVERYDAY AT BEDTIME 90 tablet 1 4 Active docusate sodium (COLACE) 100 mg capsule TAKE 1 CAPSULE BY MOUTH EVERY DAY 90 capsule 1 5 Active diclofenac (VOLTAREN) 1 % topical gel APPLY 1 GM TOPICALLY 2 TIMES DAILY NEEDED (FOOT PAIN). 100 g 1 5 Active Active Problems Problem Noted Date Diagnosed Date Class 2 obesity due to exces s calories without serious comorbidity with body mass index (BMI) of 39.0 to 39.9 in adult 08/22/2024 Allergic rhinitis 09/07/2021 Mild persistent asthma without complication 08/13 Intractable headache 08/23/2020 Leg cramping 07/13/2020 Insomnia 04/22/2020 Constipation 08/21/2019 Heartburn 08/21/2019 Sleep disorder 10/14/2012 Papanicolaou smear of cervix with low grade squamous intraepithelial lesion (LGSIL) 02/01/2011 Overview (08/22/2024): Colposcopy 02/01/11 - SAL 2, wants to repeat tests/colposcopy in June, Pap negative 01/03/12. And also 2012 with neg HPV Previous ASCUS with negative HPV in 2008 Pap normal and neg HPV in 2015, continue testing every three years Lumbosacral radiculitis 11/15/2010 Hand eczema 01/11/2009 Immunizations Name Administration Dates Next Due HPV, Quadrivalent 06/16/2009,08/12/2008,05/19/20 08 Influenza Quadravalent, MDCK , 0.5ml, preservative free (Flucelvax) 6mo and older 08/06/2020 Influenza Quadravalent, MDCK , 0.5ml, with preservative (Flucelvax) 6mo and older 08/08/2018 Influenza trivalent, 0.5mL, preservative free (Fluarix; FluLaval; Fluzone) ages 6mo and older (Afluria) 3 years and older 10/14/2012,08/09/2009,08/10/2008,09/20 PPD Test 11/21/2012 Pneumococcal polysaccharide 23 valent (Pneumovax 23) 2yo and older 08/27/2014 Td Tetanus diptheria (Tdvax) 7yo and older 08/21/2019 Tdap Tetanus diptheria acell ular pertussis (Boostrix; Adacel) 7yo and older 12/11/2008 Surgical History Surgery Date Site/Laterality Comments OTHER SURGICAL HISTORY 02/12/2013 PROCEDURE: UT OPEN IMPLANTATION LIANE SACRAL NERVE; COMMENT: for urinary incontinence OTHER SURGICAL HISTORY 05/20/2020 PROCEDURE: BARIUM SWALLOW; COMMENT: Normal GASTRIC BYPASS 11/10/2020 PROCEDURE: UT GASTRIC RSTCV W/BYP W/SM INT RCNSTJ LIMIT ABSRPJ; COMMENT: gastric sleeve with Dr. Edy Baker OTHER SURGICAL HISTORY PROCEDURE: UT RPR INGUN HERNIA SLIDING ANY AGE; COMMENT: hiatal hernia repair with Dr. Baker Medical History Medical History Date Comments Ulcerative (chronic) proctit is (CMS/HCC) 11/23/2006 DX:Ulcerative (chronic) proc titis (HCC); COMMENT: at age 12 to 15 Eczema 01/11/2009 DX:Eczema Hay fever 01/11/2009 DX:Hay fever Sleep disorder 10/14/2012 DX:Sleep disorde r Family History Medical History Relation Name Comments Arthritis Father Hypertension Father Hypertension Mother Stomach cancer Uncle Paternal Breast cancer Neg Hx Colon cancer Neg Hx Ovarian cancer Neg Hx Relation Name Status Comments Brother Alive Daughter 1 Alive brain stem tumo r Daughter 2 Alive healthy Father Alive htn Mother Alive htn Sister 1 Alive Sister 2 Alive Sister 3 Alive Uncle Paternal Alive Social History Tobacco Use Types Packs/Day Years Used Date Smoking Tobacco: Never Smokeless Tobacco: Never Alcohol Use Standard Drinks/Week Comments Yes 0 (1 standard drink = 0.6 oz pur e alcohol) Comments Unknown Sex and Gender Information Value Date Recorded Sex Assigned at Not on file Legal Sex Female 11:11 AM EST Gender Identity Not on file Sexual Orientation Not on file Obstetrics History Last Filed Vital Signs Vital Sign Reading Time Taken Comments Blood Pressure 136/84 08/26/2024 3:58 PM EDT Pulse 74 08/26/2024 3:58 PM EDT Temperature - - Respiratory Rate - - Oxygen Saturation - - Inhaled Oxygen Concentration - - Weight 95.3 kg (210 lb) 08/26/2024 3:58 PM EDT Height 167.6 cm (5' 6 ) 08/26/2024 3:58 PM EDT Body Mass Index 33.89 08/26/2024 3:58 PM EDT Plan of Treatment Upcoming Encounters Date Type Department Care Team (Late st Contact Info) Description 04/08/2025 3:30 PM EDT Office Visit Adult Medicine [facility] [place] [address] [place] [address] Florence Pierson PA [address] [place] [address] Health Maintenance Due Date Last Done Comments Breast Cancer Screening 1983 Hepatitis B Vaccines (1 of 3 - 19+ 3-dose series) 2002 Pneumococcal Vaccine: Pediatrics (0 to 5 Years) and At-Risk Patients (6 to 64 Years) (2 of 2 - PCV) 08/27/2015 08/27/2014 Cervical Cancer Screening: Pap Smear 12/16/2018 12/16/2015, 12/16/2015 Social Influencers of Health Screening 10/10/2022 COVID-19 Vaccine ( season) 2024 12/23/2020, 12/02/2020 Influenza Vaccine (#1) 2024 , 08/08/2018, 10/14/2012, Additional history exists Depression Screening 06/26/2025 06/26/2024 Cholesterol Screening (Lipid Panel) 03/10/2029 03/10/2024, 03/10/2024 DTaP,Tdap,and Td Vaccines (4 - Td or Tdap) 08/21/2029 08/21/2019, 12/25/2013, 12/11/2008 HPV Vaccines Completed 06/16/2009, 11/2007, 05/19/2008 HIV Screening Completed 07/08/2020 Hepatitis C Screening Completed 07/08/2020 HIB Vaccines Aged Out No longer eligi ble based on patient's age to complete this topic Hepatitis A Vaccines Aged Out No long er eligible based on patient's age to complete this topic IPV Vaccines Aged Out No longer eligi ble based on patient's age to complete this topic MMR Vaccines Aged Out No longer eligi ble based on patient's age to complete this topic Meningococcal ACWY Vaccine Aged Out N o longer eligible based on patient's age to complete this topic Meningococcal B Vacine Aged Out No lo nger eligible based on patient's age to complete this topic RSV Immunization Patients Under 20 months Aged Out No longer eligible based on patient's age to complete this topic Varicella Vaccines Aged Out No longer eligible based on patient's age to complete this topic Procedures Procedure Name Priority Date/Time Associated Diagnosis Comments DEPRESSION SCREENING Routine 06/26/2024 LIPID PANEL Routine 03/10/2024 HEPATITIS C SCREENING Routine 07/08/2020 HIV SCREENING Routine 07/08/2020 HPV Routine 12/16/2015 from Last 3 Months or Most Recently Relevant to Health Maintenance Results * Depression Screening (06/26/2024) [facility] Depression Screening abstracted [facility] Provider HEALTH MAINTENANCE Final Result * Lipid panel (03/10/2024) [facility] LDL/HDL Ratio 2 0 - 4 Triglycerides 71 0 - 150 mg/dL Cholesterol 199 0 - 200 mg/dL HDL 117 >=40 mg/dL LDL Cholesterol 68 0 - 100 mg/dL Blood Venous blood specimen / Unknown Result [facility] Provider LAB BLOOD ORDERABLES Gretchen l Result * HIV Screening (07/08/2020) [facility] HIV Screening abstracted Result [facility] Provider HEALTH MAINTENANCE Final Result * Hepatitis C Screening (07/08/2020) [facility] Hepatitis C Screening abstracted [facility] Provider HEALTH MAINTENANCE Final Result * Cervical Cancer Screening: HPV (12/16/2015) [facility] Cervical Cancer Screening: HPV no interpretation , abstracted us Historical Provider HEALTH MAINTENANCE Final Result from Last 3 Months or Most Recently Relevant to Health Maintenance Insurance [facility] [employer] Care Teams Seat Pack Inspector Relationship Specialty Start Date End Date Yolie Cardenas MD [address] [place] [id number] PCP - General 01/16/23
== END 2025-01-23 16:05 | disposition home or self-care (01) ==
PROVIDERS: PCP Internal Medicine; Visit Provider Physician Assistant Medical
DX: N30.01 Acute cystitis with hematuria (principal); Z13.9 Encounter for screening, unspecified

== ENCOUNTER 2025-01-23 15:20 | Outpatient (REF) | payer OTHER, SELFPAY | END 2025-01-23 15:21 | disposition home or self-care (01) | LOC: HO.LNP 15:20 | PROVIDERS: PCP Internal Medicine; Visit Provider Physician Assistant Medical | DX: N30.01 Acute cystitis with hematuria (principal) | CPT/HCPCS: 81003; 87086; 99212 ==